=== PATIENT | female | born 1945 | race Two or more races ===

== ENCOUNTER 2018-03-26 09:44 | Inpatient (IN) | payer OTHER ==
[2018-03-26] MEDS ORDERED: Sodium Chloride 0.9% 1,000 ML IV ONE (10:09)
[2018-03-26] MEDS ORDERED: Morphine Sulfate 2 mg/mL 1mL Syr IVP ONE (10:09)
[2018-03-26 10:28] LABS: % BASOPHILS 0.7 % (0.0-2.0); % EOSINOPHILS 5.1 % (0.0-5.0); % LYMPHOCYTES 31.5 % (20.0-50.0); % MONOCYTES 8.9 % (2.0-10.0); % NEUTROPHILS 53.8 % (40.0-80.0); EOSINOPHILE ABSOLUTE 0.2 Th/cmm (0.1-0.4); HEMATOCRIT 34.4 % (41.0-60); HEMOGLOBIN 11.7 gm/dL (12-16); LYMPHOCYTE ABSOLUTE 1.4 Th/cmm (1.5-3.0); MEAN CELL VOLUME 84.2 fl (81-100); MEAN CORPUSCULAR HEMOGLOBIN 28.6 pg (27.0-31.0); MEAN PLATELET VOLUME 6.1 fl; MONOCYTE ABSOLUTE 0.4 Th/cmm (0.3-1.0); NEUTROPHILE ABSOLUTE 2.4 Th/cmm (1.8-8.0); PLATELET COUNT 270 Th/cmm (150-400); RED BLOOD COUNT 4.08 Mil/cmm (3.80-5.20); WHITE BLOOD COUNT 4.4 Th/cmm (4.8-10.8)
[2018-03-26] MEDS ORDERED: Morphine Sulfate 2 mg/mL 1mL Syr ONE (10:34)
[2018-03-26 10:44] LABS: ALB/GLOB RATIO 1.5 (1.0-1.8); ALBUMIN 4.5 gm/dL (3.7-5.3); ALKALINE PHOSPHATASE 62 U/L (34-104); BILIRUBIN,TOTAL 0.5 mg/dL (0.3-1.0); BUN - UREA NITROGEN 25 mg/dL (7-25); CALCIUM SERUM 9.5 mg/dL (8.6-10.3); CARBON DIOXIDE 22.8 mEq/L (21.0-31.0); CHLORIDE 104 mEq/L (98-107); CHOLESTEROL 175 mg/dL (<200); CREATININE - SERUM 0.9 mg/dL (0.6-1.2); CREATININE KINASE 326 U/L (30-223); GLUCOSE 126 mg/dL (70-105); HDL -HIGH DENSITY LIPOPROTEIN 37 mg/dL (23-92); POTASSIUM SERUM 3.8 mEq/L (3.5-5.1); SGOT 68 U/L (13-39); SGPT/ALT 54 U/L (7-52); SODIUM SERUM 136 mEq/L (136-145); TOTAL PROTEIN,SERUM 7.5 gm/dL (6.0-8.3); TRIGLYCERIDES 168 mg/dL (<150)
[2018-03-26 10:45] LABS: AMYLASE SERUM 28 U/L (29-103); LIPASE 24 U/L (11-82)
[2018-03-26 10:46] LABS: INR 0.9 (0.5-1.4); PROTHROMBIN TIME (TEST) 9.4 SECONDS (9.5-11.5)
--- NOTE | 2018-03-26 10:49 | ED Physician Chart ---
ED Chief Complaint/HPI - Patient Information Date Seen:: 03/26/18 Time Seen:: 10:00 Chief Complaint:: Abdominal Pain History of Present Illness:: onset x 3 days of intermittent, generalized, crampy abdominal pain, N/C; pt denies trauma, H/As, S/T, neck pain, C/P, SOB, cough, A/V/D, fever, chills, bleeding, or urinary s/s Allergies:: Allergies Allergy/AdvReac Type Severity Reaction Status Date / Time No Known Allergies Allergy Verified 03/26/18 10:03 Vitals:: Vital Signs - 8 hr 03/26/18 10:06 Temp 98.2 F HR 72 RR 19 BP 134/64 O2 Sat % 97 Historian:: Patient, Family Member Review:: Nurse's Note Reviewed ED Review of Systems - Review of Systems General/Constitutional: No fever, No chills, No weight loss, No weakness, No diaphoresis, No edema, No loss of appetite Skin: No skin lesions, No rash, No bruising Head: No headache, No light-headedness Eyes: No loss of vision, No pain, No diplopia ENT: No earache, No nasal drainage, No sore throat, No tinnitus Neck: No neck pain, No swelling, No thyromegaly, No stiffness, No mass noted Cardio Vascular: No chest pain, No palpitations, No PND, No orthopnea, No edema Pulmonary: No SOB, No cough, No sputum, No wheezing GI: Nausea, Vomiting, Diarrhea, Pain, No melena, No hematochezia, No constipation, No hematemesis G/U: No dysuria, No frequency, No hematuria Helpdesk Specialist: No vaginal discharge, No abnormal vaginal bleed, No contraction Musculoskeletal: No bone or joint pain, No back pain, No muscle pain Endocrine: No polyuria, No polydipsia Psychiatric: No prior psych history, No depression, No anxiety, No suicidal ideation, No homicidal ideation, No auditory hallucination, No visual hallucination Hematopoietic: No bruising, No lymphadenopathy Allergic/Immuno: No urticaria, No angioedema Neurological: No syncope, No focal symptoms, No weakness, No paresthesia, No headache, No seizure, No dizziness, No confusion, No vertigo ED Past Medical History - Past Medical History Obtainable: Yes Past Medical History: HTN, Dyslipidemia, Thyroid disorder Family History: HTN Social History: Non Smoker, No Alcohol, No Drug Use, Surgical History: None Psychiatricy History: None Medication: Reviewed Family Medical History - Family Member Mother History Unknown: Yes ED Physical Exam - Physical Examination General/Constitutional: Awake, Well-developed, well-nourished, Alert, No distress, GCS 15, Non-toxic appearing, Ambulatory Head: Atraumatic Eyes: Lids, conjuctiva normal, PERRL, EOMI Skin: Nl inspection, No rash, No skin lesions, No ecchymosis, Well hydrated, No lymphadenopathy ENMT: External ears, nose nl, TM canals nl, Nasal exam nl, Lips, teeth, gums nl , Oropharynx nl, Tonsils nl Neck: Nontender, Full ROM w/o pain, No JVD, No nuchal rigidity, No bruit, No mass, No stridor Respiratory: Nl effort/Exclusion, Clear to Auscultation, No Wheeze/Rhonchi/Rales Cardio Vascular: RRR, No murmur, gallop, rubs, NL S1 S2, Carotid/Femoral/Distal pulses equal bilaterally GI: No tenderness/rebounding/guarding, No organomegaly, No hernia, Normal BS's, Nondistended, No mass/bruits, No McBurney tenderness, Rectum exam nl : No CVA tenderness Extremities: No tenderness or effusion, Full ROM, normal strength in all extremities, No edema, Normal digits & nails Neuro/Psych: Alert/oriented, DTR's symmetric, Normal sensory exam, Normal motor strength, Judgement/insight normal, Mood normal, Normal gait, No focal deficits Misc: Normal back, No paraspinal tenderness ED Labs/Radiology/EKG Results - Lab Results Results: Laboratory Tests 03/26/18 03/26/18 10:20 10:20 WBC 4.4 L RBC 4.08 Hgb 11.7 L Hct 34.4 L MCV 84.2 MCH 28.6 MCHC Differential 34.0 RDW 14.0 Plt Count 270 MPV 6.1 Neutrophils % 53.8 Lymphocytes % 31.5 Monocytes % 8.9 Eosinophils % 5.1 H Basophils % 0.7 B-Natriuretic Peptide 33.5 Comments:: + Anemia; + Leukopenia; BUN: 25 - Radiology Results Comments:: NAD - EKG Interpretations EKG Time:: 10:15 Rate & Rhythm: 77; NSR; SA Comments:: non-specific st-t changes ED Septic Shock - . Is Septic Shock (SBP<90, OR Lactate>4 mmol\L) present?: No - <6hrs of presentation: Vital Signs: Vital Signs - 8 hr 03/26/18 10:06 Temp 98.2 F HR 72 RR 19 BP 134/64 O2 Sat % 97 ED Reassessment (Disposition) - Reassessment Reassessment Condition:: Improved - Diagnosis Diagnosis:: Abdominal Pain; N/V/D/C; AGE; Constipation; Gastritis; Leukopenia; Anemia; Dehydration; Left Adnexal Cyst - Aftercare/Follow up Instructions Aftercare/Follow-Up Instructions:: Counseled pt regarding lab results/diagnosis & need follow up, Counseled pt & family regarding lab results/diagnosis & need follow up - Patient Disposition Discharge/Transfer:: Acute Care w/in this hosp Accepting Physician:: Dr. Valdez Time Called:: 1200 Time Responded:: 12:00 Admitted to:: Telemetry Spoke to:: Dr. Valdez Admitting Medical Physician:: Dr. Valdez Condition at Disposition:: Stable, Improved
--- NOTE | 2018-03-26 11:00 | Diagnostic Imaging Report ---
CHEST X-RAY: AP view INDICATION: pain COMPARISON: None FINDINGS: Mild chronic lung changes are noted. There is no focal consolidation or pleural effusions The heart is normal in size. Atherosclerosis is noted. Degenerative changes of the spine are noted. Degenerative changes of bilateral shoulders are noted. There may be large osteophytes along the bilateral humeral head regions. IMPRESSION: No focal consolidation identified. Atherosclerotic vascular disease. Degenerative changes with probable large osteophytes along the bilateral humeral head regions. If indicated, dedicated x-rays of the shoulders may be obtained.
--- NOTE | 2018-03-26 11:03 | Diagnostic Imaging Report ---
CT abdomen and pelvis without intravenous contrast Indication: Abdominal pain Comparison: None, Technique: Axial images were obtained from the lung bases to the bilateral proximal femurs without IV contrast. Coronal reconstructions were made. total DLP: 761, CTDI15.2 FINDINGS: Hypoventilatory and atelectatic changes of the lung bases are noted. Assessment of the solid organs is limited due to lack of IV contrast. No evidence of focal hepatic, or splenic lesions. Splenic artery calcifications are noted. No focal pancreatic or adrenal lesions. No evidence of hydronephrosis or focal renal lesions. Left adnexal lesion is seen measuring 2.5 cm. Radiodensity possibly ingested material is seen along the cecal region measuring 1 cm. No evidence of appendicitis. No evidence of free abdominal fluid or free abdominal air. Moderate atherosclerosis is noted. Advanced Degenerative changes of the spine are noted. There is 2 mm anterolisthesis of L4 on L5 likely due to facet arthropathy. IMPRESSION: No evidence of appendicitis. There is 1 cm high density, possibly ingested material or calcification seen along the cecal region, significance uncertain. No evidence of bowel obstruction. 2.5 cm left adnexal cyst. Short-term follow-up ultrasound is recommended for further assessment Diffuse atherosclerotic vascular disease. Advanced degenerative changes of the spine. There is 2 mm anterolisthesis of L4 on L5 likely due to facet arthropathy.
[2018-03-26 13:40] VITALS: BP 116/60
[2018-03-26] MEDS: D5-0.45NS 1,000 ML IV SCH (15:08)
[2018-03-26] MEDS ORDERED: VTE Chemical Prophylaxis Screen/Admission MC PRN (16:45)
[2018-03-26 17:00] LABS: URINE MICROSCOPIC INDICATED? YES; URINE SOURCE CLEAN C
[2018-03-26 17:03] LABS: URINE BILIRUBIN NEGATIVE (NEGATIVE); URINE BLOOD NEGATIVE (NEGATIVE); URINE GLUCOSE (UA) NEGATIVE (NEGATIVE); URINE KETONE NEGATIVE (NEGATIVE); URINE LEUKOCYTE ESTERASE TRACE (NEGATIVE); URINE NITRATE NEGATIVE (NEGATIVE); URINE PROTEIN NEGATIVE (NEGATIVE); URINE UROBILINOGEN 0.2 E.U./dL (0.2 - 1.0)
[2018-03-26 17:13] LABS: URINE AMORPHOUS SEDIMENT FEW URATES (NONE SEEN); URINE BACTERIA NONE SEEN /hpf (NONE SEEN); URINE CLARITY CLEAR (CLEAR); URINE COLOR YELLOW; URINE EPITHELIAL CELLS MANY /lpf (FEW); URINE RBC 0-2 /hpf (0-5)
[2018-03-26] MEDS: Morphine Sulfate 4 mg/mL 1mL Syr IV PRN (18:58)
[2018-03-27] MEDS: D5-0.45NS 1,000 ML IV SCH ×2 (03:50→17:17)
[2018-03-27 05:11] LABS: % BASOPHILS 0.7 % (0.0-2.0); % EOSINOPHILS 4.7 % (0.0-5.0); % LYMPHOCYTES 22.3 % (20.0-50.0); % MONOCYTES 9.3 % (2.0-10.0); EOSINOPHILE ABSOLUTE 0.2 Th/cmm (0.1-0.4); HEMATOCRIT 31.9 % (41.0-60); HEMOGLOBIN 10.7 gm/dL (12-16); LYMPHOCYTE ABSOLUTE 1.1 Th/cmm (1.5-3.0); MEAN CELL VOLUME 84.7 fl (81-100); MEAN CORPUSCULAR HEMOGLOBIN 28.5 pg (27.0-31.0); MEAN CORPUSCULAR HGB CONC 33.7 pg (28.0-36.0); MONOCYTE ABSOLUTE 0.4 Th/cmm (0.3-1.0); NEUTROPHILE ABSOLUTE 3.1 Th/cmm (1.8-8.0); PLATELET COUNT 227 Th/cmm (150-400); RED BLOOD COUNT 3.76 Mil/cmm (3.80-5.20); RED CELL DISTRIBUTION WIDTH 14.1 % (11.5-20.0); WHITE BLOOD COUNT 4.8 Th/cmm (4.8-10.8)
[2018-03-27 05:35] LABS: ALB/GLOB RATIO 1.5 (1.0-1.8); ALBUMIN 3.9 gm/dL (3.7-5.3); ALKALINE PHOSPHATASE 62 U/L (34-104); ANION GAP 9.3 (7.0-16.0); BILIRUBIN,TOTAL 0.4 mg/dL (0.3-1.0); BUN - UREA NITROGEN 19 mg/dL (7-25); CALCIUM SERUM 8.7 mg/dL (8.6-10.3); CARBON DIOXIDE 25.4 mEq/L (21.0-31.0); CHLORIDE 108 mEq/L (98-107); CHOLESTEROL 148 mg/dL (<200); CREATININE - SERUM 0.9 mg/dL (0.6-1.2); GLUCOSE 110 mg/dL (70-105); HDL -HIGH DENSITY LIPOPROTEIN 30 mg/dL (23-92); LIPASE 26 U/L (11-82); MAGNESIUM 2.2 mg/dL (1.9-2.7); POTASSIUM SERUM 3.7 mEq/L (3.5-5.1); SGOT 53 U/L (13-39); SGPT/ALT 44 U/L (7-52); SODIUM SERUM 139 mEq/L (136-145); TOTAL PROTEIN,SERUM 6.5 gm/dL (6.0-8.3); TRIGLYCERIDES 187 mg/dL (<150)
--- NOTE | 2018-03-27 09:28 | Diagnostic Imaging Report ---
Abdominal ultrasound HISTORY: Pain The liver is enlarged. There is an increase in hepatic parenchymal echogenicity. The finding may be associated with fatty infiltration and should be correlated with liver function tests. No focal lesions. No intraluminal abnormality seen within the gallbladder. No biliary dilatation. Pancreas not well seen due to bowel gas. The kidneys appear normal bilaterally. No other retroperitoneal or intra-abdominal abnormalities. IMPRESSION: 1. Somewhat limited exam due to patient's size, body habitus, bowel gas 2. No definite acute abnormalities 3. Suggestion of hepatomegaly along with parenchymal changes that may reflect fatty infiltration. The findings should be correlated with liver function tests
--- NOTE | 2018-03-27 09:29 | Diagnostic Imaging Report ---
KUB abdominal film (portable) HISTORY: Pain There is a nonspecific gas pattern of nondilated bowel. No free intraperitoneal air. Degenerative changes noted throughout the spine. IMPRESSION: 1. Nonspecific bowel gas pattern with no acute radiographic abnormalities
[2018-03-27] MEDS ORDERED: Fleet Enema 135 mL RC ONE (11:22)
[2018-03-27] MEDS: Ciprofloxacin 200mg Premix PB 200 MG/100 ML BAG IV SCH ×2 (12:00→21:00)
--- NOTE | 2018-03-27 12:43 | History & Physical ---
ADMIT DATE: CHIEF COMPLAINT: Abdominal pain x 3 days. HISTORY OF PRESENT ILLNESS: The patient is a 72-year-old lady with history of essential hypertension, hyperlipidemia, hypothyroidism and constipation, who presented to the ED with a 3-day history of worsening abdominal pain, mostly left-sided, at times crampy associated with bloating and burping. She tells me that at times she gets constipated, but this does not occur too often. She regularly goes to the bathroom at least once, but sometimes up to 3 times a day. She does report no bowel movements over the last 3 days, but denies any unusual p.o. intake. She was seen at the ED where pertinent findings included a UA pointing to a UTI and CT of the abdomen and pelvis showing no small-bowel obstruction and no other intra-abdominal pathology. There was a 1 cm high density possibly ingested material or calcification seen along the cecal region with unknown or uncertain significance. There was also an incidental 2.5 left adnexal cyst noted. The patient has been admitted to the medical/surgical floor for further management and care. On further questioning, the patient states that these symptoms are similar to previous symptoms that are secondary to constipation. She apparently saw her primary care doctor a few days ago and who put her on a bowel regimen, but this has apparently not improved her symptoms. PAST MEDICAL HISTORY: As noted above and acid reflux disease. PAST SURGERIES: Denies. FAMILY HISTORY: Noncontributory. SOCIAL HISTORY: No tobacco, ETOH or illicit drug usage. ALLERGIES: NKDA. OUTPATIENT MEDICATIONS: Vitamin B12 1000 mg q. daily, docusate sodium 200 at bedtime, Lasix 20 q. daily, levothyroxine 50 mcg q. daily, lisinopril 20 q. daily and lovastatin 40 mg q. daily. REVIEW OF SYSTEMS: CONSTITUTIONAL: No fever or chills, no recent weight loss. CARDIAC: No chest pain, palpitations. PULMONARY: Occasional cough, chest tightness and phlegm production on/off x 2 weeks. GASTROINTESTINAL: Please refer to the HPI. No N/V, hematemesis, brbpr/melena. GENITOURINARY: No bladder habit changes. Denies any UTI. NEUROLOGIC: No changes in vision, no headaches. PHYSICAL EXAMINATION: VITAL SIGNS: Temperature 96.2, pulse 57-62, blood pressure 122/48, respirations 18, satting 98% on room air. GENERAL: Well-developed, mildly obese female, not in acute distress. HEAD AND NECK: Normocephalic, atraumatic. Pupils are reactive to light. Extraocular movements are intact. Oropharynx is moist and clear. CARDIAC: Regular rate and rhythm without any murmurs. LUNGS: Clear to auscultation bilaterally. ABDOMEN: Soft, supple, somewhat distended. Currently, there are hypoactive bowel sounds, but there is no rebound or peritoneal signs. LOWER EXTREMITY: There is no edema. LABORATORY DATA: White count 4.4, H and H 11/34 with a platelet count of 270. Chem-7 was essentially within normal limits. Glucose 126. AST 68, ALT 54. Troponins were negative. BNP negative. UA, trace leukocyte esterase with 2-5 WBCs. DIAGNOSTICS: Please refer to the HPI. IMPRESSION: 1. Abdominal pain, likely secondary to constipation given her history and her current findings. Other Ddx-diverticulosis vs colitis. 2. Urinary tract infection. 3. Hypertension. 4. History of hyperlipidemia. 5. History of hypothyroidism. 6. Mild transaminitis-?fatty liver dz. PLAN: The patient has been admitted to the medical floor for further management and care. The patient was placed on IV fluids, empiric IV antibiotics, pain management and Protonix. She was initially n.p.o., but her diet will be advanced as tolerated. I will ask for laxatives including Dulcolax, docusate sodium and a Fleet enema will be given per rectum. The patient is agreeable to go home if she is able to have a bowel movement and if her symptoms improve. If no improvement is achieved with above, a GI consult will be asked for. JOB# [id number] CECILIA
[2018-03-28] MEDS: Morphine Sulfate 4 mg/mL 1mL Syr IV PRN (02:27)
[2018-03-28] MEDS: Ciprofloxacin 200mg Premix PB 200 MG/100 ML BAG IV SCH ×2 (08:29→21:31)
[2018-03-28] MEDS ORDERED: Pneumococcal Vaccine 0.5 mL Vial IM ONE (09:00)
[2018-03-28] MEDS ORDERED: MINERAL OIL ENEMA 135 ML BOTTLE RC ONE (09:56)
[2018-03-28] MEDS ORDERED: LOVASTATIN 40 MG PO SCH (10:00)
[2018-03-28] MEDS ORDERED: Metoclopramide 5 mg/mL 2mL Vial IVP PRN (10:32)
[2018-03-28] MEDS: POLYETHYLENE GLYCOL 3350 17 GM PACK PO SCH (10:46)
[2018-03-28] MEDS: D5-0.45NS 1,000 ML IV SCH (15:06)
[2018-03-29 06:25] LABS: % BASOPHILS 1.2 % (0.0-2.0); % EOSINOPHILS 4.8 % (0.0-5.0); % LYMPHOCYTES 29.6 % (20.0-50.0); % NEUTROPHILS 53.4 % (40.0-80.0); EOSINOPHILE ABSOLUTE 0.2 Th/cmm (0.1-0.4); HEMATOCRIT 30.9 % (41.0-60); HEMOGLOBIN 10.4 gm/dL (12-16); LYMPHOCYTE ABSOLUTE 1.1 Th/cmm (1.5-3.0); MEAN CELL VOLUME 84.7 fl (81-100); MEAN CORPUSCULAR HEMOGLOBIN 28.4 pg (27.0-31.0); MEAN CORPUSCULAR HGB CONC 33.6 pg (28.0-36.0); MEAN PLATELET VOLUME 6.1 fl; MONOCYTE ABSOLUTE 0.4 Th/cmm (0.3-1.0); PLATELET COUNT 208 Th/cmm (150-400); RED BLOOD COUNT 3.65 Mil/cmm (3.80-5.20); RED CELL DISTRIBUTION WIDTH 14.1 % (11.5-20.0)
[2018-03-29 06:34] LABS: WHITE BLOOD COUNT 3.7 Th/cmm (4.8-10.8)
[2018-03-29 06:39] LABS: ALB/GLOB RATIO 1.9 (1.0-1.8); ALBUMIN 3.7 gm/dL (3.7-5.3); BILIRUBIN,TOTAL 0.3 mg/dL (0.3-1.0); TOTAL PROTEIN,SERUM 5.7 gm/dL (6.0-8.3)
[2018-03-29 06:40] LABS: ANION GAP 8.9 (7.0-16.0); BUN - UREA NITROGEN 8 mg/dL (7-25); CALCIUM SERUM 8.6 mg/dL (8.6-10.3); CARBON DIOXIDE 23.7 mEq/L (21.0-31.0); CHLORIDE 110 mEq/L (98-107); CREATININE - SERUM 0.8 mg/dL (0.6-1.2); GLUCOSE 112 mg/dL (70-105); MAGNESIUM 2.1 mg/dL (1.9-2.7); POTASSIUM SERUM 3.6 mEq/L (3.5-5.1); SODIUM SERUM 139 mEq/L (136-145)
[2018-03-29] MEDS: D5-0.45NS 1,000 ML IV SCH (06:45)
[2018-03-29 06:51] LABS: BILIRUBIN,DIRECT 0.08 mg/dL (0.0-0.2)
[2018-03-29] MEDS ORDERED: Levothyroxine 0.05 Mg Tab PO SCH (07:30)
[2018-03-29] MEDS: Ciprofloxacin 200mg Premix PB 200 MG/100 ML BAG IV SCH (09:00)
[2018-03-29] MEDS: POLYETHYLENE GLYCOL 3350 17 GM PACK PO SCH (09:11)
--- NOTE | 2018-03-29 09:20 | Consultation ---
DATE OF CONSULTATION: 03/28/2018 INPATIENT GASTROINTESTINAL CONSULTATION REFERRING PHYSICIAN: Dr. Valdez. REASON FOR CONSULTATION: Right-sided abdominal pain and constipation. HISTORY OF PRESENT ILLNESS: A 72-year-old female complaining of right-sided abdominal pain for the past 10 days. The patient has not had a bowel movement in 7 days. She has nausea, but no vomiting. Denies hematemesis or coffee ground emesis. States that she has had a workup recently where in October she had an endoscopy and colonoscopy. PAST MEDICAL HISTORY: GERD, hypertension, hyperlipidemia, hypothyroidism, constipation. PAST SURGICAL HISTORY: None to add recently. FAMILY HISTORY: Noncontributory. SOCIAL HISTORY: Denies tobacco, alcohol or IV drug usage. ALLERGIES: None. CURRENT MEDICATIONS: Cipro, vitamin B12, Colace, Lasix, Toradol, Synthroid, Zestril, Reglan, morphine, Zofran, Protonix, MiraLax, Zocor. REVIEW OF SYSTEMS: Ten-point review of systems was performed and pertinent positives with the constipation and abdominal pain. All other systems were otherwise negative. PHYSICAL EXAMINATION: VITAL SIGNS: Temperature 97.4, breathing 18, pulse of 70, blood pressure 133/59, satting 97%. GENERAL: In no apparent distress. EYES: Anicteric. Normal conjunctivae. HEENT: Normocephalic, atraumatic. Moist mucous membranes. NECK: Soft, supple. CHEST: Clear. No effort. CARDIOVASCULAR: Regular rate and rhythm. ABDOMEN: Soft, nontender, nondistended, normal bowel sounds. SKIN: Warm and dry. EXTREMITIES: Reveal no cyanosis. PSYCHOLOGIC: Alert and oriented x 3. LABORATORY DATA: Labs show white count 4.8, hemoglobin 10.7, platelets of 227. INR 0.9. BUN 19, creatinine 0.9. Total bilirubin 0.4, AST of 53, ALT 44, alk phos 62, lipase 26. UA showed leukocyte esterase. IMPRESSION: A 72-year-old female with abdominal pain and constipation. She has urinary tract infection, being treated with antibiotics per primary team; has not had any bowel movements for the last 7 days, we could provide her with some additional laxatives. Presently, the primary team is using Colace and MiraLax, which is not unreasonable. We can also add Amitiza given the fact that she is on opioids and this could also help with chronic idiopathic constipation. Endoscopy and colonoscopy will be considered; however, they were done recently; therefore, they do not need to be repeated at this time, getting records would be helpful. Her LFTs are elevated, which would be consistent with fatty liver disease, which was seen on her ultrasound. Her CT abdomen and pelvis was reviewed and was unremarkable for any bowel obstruction. Her KUB was also unremarkable. PLAN: 1. Provide the patient with Amitiza. 2. Treat urinary tract infection per primary team. 3. Gradual weight loss through diet and exercise for fatty liver disease. 4. Follow LFTs periodically as an outpatient. 5. Get records of EGD and colonoscopy. Thank you for allowing me to participate. Please call me if any questions. [facility]# [id number]
--- NOTE | 2018-03-29 20:37 | Discharge Summary ---
DATE OF DISCHARGE: 03/29/2018 ADMITTING DIAGNOSES: 1. Abdominal pain with differential diagnosis including secondary to constipation versus diverticulosis versus colitis. 2. Urinary tract infection. 3. Mild leukopenia. 4. Mild transaminitis. 5. Anemia. SECONDARY DIAGNOSIS: Essential hypertension, hyperlipidemia, hypothyroidism, acid reflux disease and asthma. DISCHARGE DIAGNOSES: 1. Abdominal pain secondary to constipation -- clinically improved. 2. History of constipation with acute constipation. 3. Urinary tract infection, status post treatment. 4. Mild leukopenia-stable. 5. Transaminitis, likely secondary to fatty liver disease. CONSULTANTS: Dr. Arnulfo FERNANDES. MAJOR PROCEDURES: CT of the abdomen and pelvis showing no evidence of appendicitis. There is a 1 cm high density probably ingested material calcification, again possibly ingested material or calcification seen along the cecal region of insignificant uncertainty. There is no evidence of bowel obstruction. There is a 2.5 left adnexal cyst. A KUB done on 03/27/2018 shows nonspecific bowel gas pattern with no acute radiographic abnormalities. BRIEF HOSPITAL COURSE: The patient presented to the ED with a 3-day history of worsening abdominal pain, colicky at times and associated with constipation. At the ED patient underwent the above-mentioned CT of the pelvis and abdomen and also had basic lab work that showed a white blood cell 4.4, AST of 68, ALT of 54 and UA was trace leukocyte esterase. The patient was admitted to the medical floor and was placed on IV fluids, multiple laxatives and IV Cipro. By hospital day #1, she felt mild improvement, but was still constipated and bloated.. Therefore, a rectal enema was ordered with mild improvement of her constipation. She reported a very small bowel movement the next day, and was still c/o abdominal pain and bloating. Given above, a mineral oil enema was ordered on top of the other laxatives and stool softeners that were already ordered. Patient eventually had a large BM. A GI consult was also asked for further management and care. The patient was also placed on Protonix given mild symptomatology of acid reflux disease and Amitiza was added as well to her regimen. Today, 03/29/2018, patient feels much better, almost back to her baseline. Of note, since admission, she also reported mild "asthma" symptoms- shortness of breath and dry cough. She reported being treated for bronchitis a few weeks ago. She was placed on nebulizer treatments as well as cough suppressants with improvement of her symptoms. DISCHARGE MEDICATIONS: Dulcolax 10 mg 1 tab at bedtime p.r.n. for constipation, docusate sodium 250 b.i.d., MiraLax 17 grams 1 pack every day, Levaquin 500 mg every day x7 10 days, Amitiza 24 mcg b.i.d. with meals, vitamin B12 1000 mcg daily, Lasix 20 daily, Synthroid 50 mcg daily, lisinopril 20 daily, lovastatin 40 daily, prednisone taper and Flovent Diskus or Flovent HFA 110 mcg 2 puffs b.i.d. CONDITION ON DISCHARGE: Stable. DISPOSITION: Discharged home to self-care. I instructed the patient to follow up her primary care doctor within a week. [facility]# [id number] MTDD
== END 2018-03-29 12:00 | disposition home or self-care (01) | DRG 690 ==
LOC: ER 09:44 → MSI 12:44
PROVIDERS: ADMIT Internal Medicine; ATTEND Internal Medicine
DX: N39.0 Urinary tract infection, site not specified (principal); K59.09 Other constipation; I10 Essential (primary) hypertension; E78.5 Hyperlipidemia, unspecified; E03.9 Hypothyroidism, unspecified; K52.9 Noninfective gastroenteritis and colitis, unspecified; K29.70 Gastritis, unspecified, without bleeding; D64.9 Anemia, unspecified; K76.0 Fatty (change of) liver, not elsewhere classified; E86.0 Dehydration; K21.9 Gastro-esophageal reflux disease without esophagitis; Z82.49 Family history of ischemic heart disease and other diseases of the circulatory system
CPT/HCPCS: 36415-UA; 71045-TC; 74000-TC; 76700-TC; 80048-TC; 80053-TC; 80061-TC; 80076-TC; 81001-TC; 82150-TC; 82270-TC; 82378-90; 82550-TC; 82553; 83690-TC; 83735-TC; 83880-TC; 84443-TC; 84484-TC; 85025-TC; 85610-TC; 93005; 96374; 96375; C9113; J0744; J1885; J2270; J2405; J2765; J7030; Z7610

== ENCOUNTER 2018-05-11 12:34 | Inpatient (IN) | payer OTHER ==
[2018-05-11] MEDS ORDERED: cefTRIAXone 1 GM in Sodium Chloride 0.9% 50 ML IV ONE (12:52)
[2018-05-11 12:59] LABS: % BASOPHILS 0.8 % (0.0-2.0); % EOSINOPHILS 4.5 % (0.0-5.0); % LYMPHOCYTES 25.9 % (20.0-50.0); % MONOCYTES 7.5 % (2.0-10.0); % NEUTROPHILS 61.3 % (40.0-80.0); EOSINOPHILE ABSOLUTE 0.2 Th/cmm (0.1-0.4); LYMPHOCYTE ABSOLUTE 1.4 Th/cmm (1.5-3.0); MEAN CELL VOLUME 83.1 fl (81-100); MEAN CORPUSCULAR HEMOGLOBIN 27.7 pg (27.0-31.0); MEAN CORPUSCULAR HGB CONC 33.3 pg (28.0-36.0); MEAN PLATELET VOLUME 6.3 fl; MONOCYTE ABSOLUTE 0.4 Th/cmm (0.3-1.0); NEUTROPHILE ABSOLUTE 3.3 Th/cmm (1.8-8.0); PLATELET COUNT 266 Th/cmm (150-400); RED BLOOD COUNT 4.33 Mil/cmm (3.80-5.20); RED CELL DISTRIBUTION WIDTH 13.2 % (11.5-20.0); WHITE BLOOD COUNT 5.3 Th/cmm (4.8-10.8)
--- NOTE | 2018-05-11 13:04 | Diagnostic Imaging Report ---
Chest x-ray single view History: Chest pain The heart size is normal. No focal pulmonary parenchymal processes. No hilar or mediastinal abnormalities. Impression: No acute abnormalities
[2018-05-11 13:29] LABS: DDIMER QUANT 482 ng/mL (100-400)
[2018-05-11] MEDS ORDERED: IOHEXOL 350mgI/mL 150mL IV ONE (13:38)
[2018-05-11 13:41] LABS: ALB/GLOB RATIO 1.6 (1.0-1.8); ALBUMIN 4.4 gm/dL (3.7-5.3); ALKALINE PHOSPHATASE 77 U/L (34-104); ANION GAP 10.7 (7.0-16.0); BILIRUBIN,TOTAL 0.4 mg/dL (0.3-1.0); BUN - UREA NITROGEN 16 mg/dL (7-25); CALCIUM SERUM 9.5 mg/dL (8.6-10.3); CARBON DIOXIDE 24.4 mEq/L (21.0-31.0); CHLORIDE 106 mEq/L (98-107); CREATININE - SERUM 0.7 mg/dL (0.6-1.2); GLUCOSE 120 mg/dL (70-105); MAGNESIUM 2.2 mg/dL (1.9-2.7); PHOSPHOROUS 2.7 mg/dL (2.5-5.0); POTASSIUM SERUM 4.1 mEq/L (3.5-5.1); SGOT 46 U/L (13-39); SGPT/ALT 39 U/L (7-52); SODIUM SERUM 137 mEq/L (136-145); TOTAL PROTEIN,SERUM 7.2 gm/dL (6.0-8.3)
--- NOTE | 2018-05-11 13:50 | ED Physician Chart ---
ED Chief Complaint/HPI - Patient Information Date Seen:: 05/11/18 Time Seen:: 12:53 Chief Complaint:: chest pain History of Present Illness:: chest pain and white sputum production with blood specks. has been on antibiotics for 2 months. on presentation, had chest pain and was pale and diaphoretic. Allergies:: Allergies Allergy/AdvReac Type Severity Reaction Status Date / Time No Known Allergies Allergy Verified 03/26/18 10:03 Vitals:: Vital Signs - 8 hr 05/11/18 05/11/18 12:53 13:20 Temp 97.4 F HR 90 85 RR 20 BP 165/85 165/105 O2 Sat % 95 Historian:: Patient, Family Member Review:: Nurse's Note Reviewed ED Review of Systems - Review of Systems General/Constitutional: No fever, No chills, No weight loss, No weakness, No diaphoresis, No edema, No loss of appetite Skin: No skin lesions, No rash, No bruising Head: No headache, No light-headedness Eyes: No loss of vision, No pain, No diplopia ENT: No earache, No nasal drainage, No sore throat, No tinnitus Neck: No neck pain, No swelling, No thyromegaly, No stiffness, No mass noted Cardio Vascular: Chest pain Pulmonary: Cough GI: No nausea, No vomiting, No diarrhea, No pain, No melena, No hematochezia, No constipation, No hematemesis G/U: No dysuria, No frequency, No hematuria Musculoskeletal: No bone or joint pain, No back pain, No muscle pain Endocrine: No polyuria, No polydipsia Psychiatric: No prior psych history, No depression, No anxiety, No suicidal ideation Hematopoietic: No bruising, No lymphadenopathy Allergic/Immuno: No urticaria, No angioedema Neurological: No syncope, No focal symptoms, No weakness, No paresthesia, No headache, No seizure, No dizziness, No confusion, No vertigo ED Past Medical History - Past Medical History Obtainable: Yes Past Medical History: HTN Social History: Non Smoker Family Medical History - Family Member Mother History Unknown: Yes Ethnicity: ED Physical Exam - Physical Examination Other Gen/Cons comments:: overweight patient who is pale and diaphoretic, c/o chest pain. Head: Atraumatic Eyes: Lids, conjuctiva normal, PERRL, EOMI Skin: Nl inspection, No rash, No skin lesions, No ecchymosis, Well hydrated, No lymphadenopathy ENMT: External ears, nose nl, Nasal exam nl, Lips, teeth, gums nl Neck: Nontender, Full ROM w/o pain, No JVD, No nuchal rigidity, No bruit, No mass, No stridor Respiratory: Nl effort/Exclusion, Clear to Auscultation, No Wheeze/Rhonchi/Rales Cardio Vascular: RRR, No murmur, gallop, rubs, NL S1 S2 GI: No tenderness/rebounding/guarding, No organomegaly, No hernia, Normal BS's, Nondistended, No mass/bruits, No McBurney tenderness : No CVA tenderness Extremities: No tenderness or effusion, Full ROM, normal strength in all extremities, No edema, Normal digits & nails Neuro/Psych: Alert/oriented, DTR's symmetric, Normal sensory exam, Normal motor strength, Judgement/insight normal, Mood normal, Normal gait, No focal deficits Misc: Normal back, No paraspinal tenderness ED Labs/Radiology/EKG Results - Lab Results Results: Laboratory Tests 05/11/18 05/11/18 05/11/18 12:50 12:50 12:50 WBC 5.3 RBC 4.33 Hgb 12.0 Hct 36.0 L MCV 83.1 MCH 27.7 MCHC Differential 33.3 RDW 13.2 Plt Count 266 MPV 6.3 Neutrophils % 61.3 Lymphocytes % 25.9 Monocytes % 7.5 Eosinophils % 4.5 Basophils % 0.8 D-Dimer 482 H Sodium 137 Potassium 4.1 Chloride 106 Carbon Dioxide 24.4 Anion Gap 10.7 BUN 16 Creatinine 0.7 Est GFR ( Amer) TNP Est GFR (Non-Af Amer) TNP BUN/Creatinine Ratio 22.9 Glucose 120 H Calcium 9.5 Phosphorus 2.7 Magnesium 2.2 Total Bilirubin 0.4 AST 46 H ALT 39 Alkaline Phosphatase 77 Troponin I 0.01 Total Protein 7.2 Albumin 4.4 Globulin 2.8 Albumin/Globulin Ratio 1.6 ED Assessment - Assessment General Assessment: EKG from 12:38:22 p.m.: normal sinus rhythm with flipped t wave in AVR. Patient received Aspirin 325 mg po and one sublingual nitroglycerin with resultant decrease of her chest pain from an 8 to a 3. Assessment/Comments:: called Dr. Valdez to admit this patient who responded to nitroglycerin with a decrease in her chest pain from an 8 to a 3 with possible pneumonia and blood- tinged sputum. ED Septic Shock - . Is Septic Shock (SBP<90, OR Lactate>4 mmol\L) present?: No - <6hrs of presentation: Vital Signs: Vital Signs - 8 hr 05/11/18 05/11/18 12:53 13:20 Temp 97.4 F HR 90 85 RR 20 BP 165/85 165/105 O2 Sat % 95 ED Reassessment (Disposition) - Reassessment Reassessment Condition:: Improved - Diagnosis Diagnosis:: Chest pain, rule out Acute Coronary Syndrome Cough with right sided haziness/infiltrate Blood tinged sputum. - Patient Disposition Discharge/Transfer:: Acute Care w/in this hosp Admitted to:: Telemetry Condition at Disposition:: Improved
[2018-05-11 13:51] LABS: URINE SOURCE CLEAN C
[2018-05-11 13:54] LABS: URINE BILIRUBIN NEGATIVE (NEGATIVE); URINE BLOOD NEGATIVE (NEGATIVE); URINE GLUCOSE (UA) NEGATIVE (NEGATIVE); URINE KETONE NEGATIVE (NEGATIVE); URINE LEUKOCYTE ESTERASE TRACE (NEGATIVE); URINE MICROSCOPIC INDICATED? YES; URINE NITRATE NEGATIVE (NEGATIVE); URINE PROTEIN NEGATIVE (NEGATIVE); URINE UROBILINOGEN 0.2 E.U./dL (0.2 - 1.0)
[2018-05-11 14:00] LABS: URINE CLARITY CLEAR (CLEAR); URINE COLOR YELLOW
[2018-05-11 14:01] LABS: URINE BACTERIA NONE SEEN /hpf (NONE SEEN); URINE EPITHELIAL CELLS FEW /lpf (FEW); URINE RBC 0-2 /hpf (0-5); URINE WBC 0-2 /hpf (0-5)
[2018-05-11] MEDS ORDERED: Maalox 30 mL Cup PO ONE ×2 (14:20→18:15)
[2018-05-11] MEDS ORDERED: Donnatal Liq 5 ML UDC PO STA (14:22)
[2018-05-11] MEDS ORDERED: Maalox 30 mL Cup ONE ×2 (14:30→18:16)
[2018-05-11 15:04] LABS: INR 0.92 (0.5-1.4); PROTHROMBIN TIME (TEST) 9.6 SECONDS (9.5-11.5)
[2018-05-11] MEDS ORDERED: Azithromycin 500 MG in Sodium Chloride 0.9% 250 ML IV ONE (15:26)
[2018-05-11] MEDS ORDERED: Ipratropium Neb 0.5 mg/2.5 mL UD HHN ONE (19:27)
[2018-05-11] MEDS: Albuterol Nebulizer 2.5mg/3mL HHN SCH ×3 (19:44→23:27)
[2018-05-12] MEDS ORDERED: Pneumococcal Vaccine 0.5 mL Vial IM ONE (00:37)
[2018-05-12] MEDS: Albuterol Nebulizer 2.5mg/3mL HHN SCH ×7 (02:36→23:02)
[2018-05-12 05:54] LABS: % BASOPHILS 0.5 % (0.0-2.0); % EOSINOPHILS 5.8 % (0.0-5.0); % LYMPHOCYTES 38.2 % (20.0-50.0); % MONOCYTES 9.6 % (2.0-10.0); % NEUTROPHILS 45.9 % (40.0-80.0); EOSINOPHILE ABSOLUTE 0.2 Th/cmm (0.1-0.4); HEMATOCRIT 34.3 % (41.0-60); HEMOGLOBIN 11.3 gm/dL (12-16); LYMPHOCYTE ABSOLUTE 1.5 Th/cmm (1.5-3.0); MEAN CELL VOLUME 83.8 fl (81-100); MEAN CORPUSCULAR HEMOGLOBIN 27.6 pg (27.0-31.0); MEAN PLATELET VOLUME 6.4 fl; MONOCYTE ABSOLUTE 0.4 Th/cmm (0.3-1.0); NEUTROPHILE ABSOLUTE 1.8 Th/cmm (1.8-8.0); PLATELET COUNT 225 Th/cmm (150-400); RED BLOOD COUNT 4.09 Mil/cmm (3.80-5.20); RED CELL DISTRIBUTION WIDTH 12.9 % (11.5-20.0)
[2018-05-12 05:59] LABS: WHITE BLOOD COUNT 3.9 Th/cmm (4.8-10.8)
[2018-05-12 06:10] LABS: ANION GAP 11.3 (7.0-16.0); BUN - UREA NITROGEN 13 mg/dL (7-25); CALCIUM SERUM 9.1 mg/dL (8.6-10.3); CARBON DIOXIDE 24.5 mEq/L (21.0-31.0); CHLORIDE 107 mEq/L (98-107); CHOLESTEROL 142 mg/dL (<200); CREATININE - SERUM 0.7 mg/dL (0.6-1.2); GLUCOSE 113 mg/dL (70-105); HDL -HIGH DENSITY LIPOPROTEIN 38 mg/dL (23-92); MAGNESIUM 2.4 mg/dL (1.9-2.7); POTASSIUM SERUM 3.8 mEq/L (3.5-5.1); SODIUM SERUM 139 mEq/L (136-145); TRIGLYCERIDES 149 mg/dL (<150)
[2018-05-12] MEDS: Aspirin 81mg Chewable Tab PO SCH (08:41)
--- NOTE | 2018-05-12 08:45 | Diagnostic Imaging Report ---
CT angiogram of the chest with intravenous contrast (CTA) Total DLP equals 438 CTDI equals 11.7 Following administration of intravenous contrast, axial sections were obtained from a level above the clavicles down to level below the diaphragm. The heart size is normal. There is normal opacification of the main, right, and left pulmonary arteries. No intraluminal filling defects are seen. Specifically, no evidence of pulmonary embolism. No other abnormal mediastinal or hilar masses. No focal pulmonary parenchymal processes. No pleural fluid. Degenerative changes seen within the thoracic spine. IMPRESSION: 1. No acute abnormalities. No evidence of pulmonary embolism.
[2018-05-12] MEDS: cefTRIAXone 1 GM in Sodium Chloride 0.9% 50 ML IV SCH (12:06)
[2018-05-12] MEDS: Pantoprazole 40 mg EC Tab PO SCH (12:42)
[2018-05-12] MEDS: methylPREDNISolone SS 40 mg Vial IVP SCH ×2 (12:42→20:41)
--- NOTE | 2018-05-12 13:55 | History & Physical Pre-OP ---
DATE OF SERVICE: 05/12/2018 CHIEF COMPLAINT: Chest pain and persistent cough. HISTORY OF PRESENT ILLNESS: The patient is a 72-year-old lady with history of essential hypertension, hypothyroidism, hyperlipidemia, who was admitted to this facility back in March for abdominal pain, was diagnosed with constipation and UTI. The patient apparently has also been coughing for the last couple of months and has been treated twice with amoxicillin and Claritin with no improvement. She also has been complaining of recurrent chest pain, which got worse over the last couple of days and decided to come into the ED for further evaluation. On further questioning, the patient states that the cough was initially nonproductive, but as of late she has had a cough productive for white thick phlegm with occasional bloody strings. She denies any fever, chills, or any palpitations. Pertinent findings at the ED included elevated D-dimer at 482. Chest x-ray, which was negative and a CT angiogram that did not show any evidence of PE. The patient has been admitted to telemetry for management and care. PAST MEDICAL HISTORY: As noted above. PAST SURGICAL HISTORY: None. FAMILY HISTORY: Noncontributory to this admission. SOCIAL HISTORY: No tobacco, ETOH, or illicit drug usage. She lives at home with family. ALLERGIES: NKDA. OUTPATIENT MEDICATIONS: Amoxicillin 500 mg 3 times a day, Lasix 20 every day, lisinopril 20 every day, vitamin B12 1000 mcg every day, Synthroid 50 mcg every day, Claritin 10 every day, lovastatin 40 every 24 hours. REVIEW OF SYSTEMS: CONSTITUTIONAL: No fever or chills, no recent weight loss. CARDIOVASCULAR: Chest pain as noted above, but no palpitations. She denies any orthopnea or dyspnea on exertion. PULMONARY: Please refer to the HPI. GASTROINTESTINAL: Occasional acid reflux, but currently denies any abdominal pain, diarrhea, constipation. GENITOURINARY: No bladder habit changes. NEUROLOGIC: No changes in vision, no headaches, no syncope. PHYSICAL EXAMINATION: VITAL SIGNS: Temperature 97.9, pulse 67, respirations 18, BP 120/46, satting 96% on room air. GENERAL: Well-developed, obese female, currently in no distress. She is awake, alert and oriented x 3. HEAD AND NECK: Normocephalic, atraumatic. Pupils reactive to light. Extraocular movements are intact. Oropharynx is moist and clear. CARDIAC: Regular rate and rhythm without any murmurs. CHEST WALL EXAM: On the left sternal border, there is some tenderness to palpation consistent with her chest pain. LUNGS: There is some very mild crackles noted at the bases, but no audible rhonchi or wheezing noted. ABDOMEN: Soft, supple, nontender, nondistended, normoactive bowel sounds. EXTREMITIES: On lower extremity, there is no edema. There is no palpable cords. NEUROLOGIC: Grossly intact, nonfocal. Cranial nerves 2-12 are within normal limits. She is able to move all 4 extremities with equal force and strength. LABORATORY DATA: CBC was essentially within normal limits. D-dimer 482. INR 0.92. Chemistry was within normal limits with glucose level of 120, AST 46, ALT 39. Troponins are negative x 2 sets. BNP is 118. TSH is 1.08. DIAGNOSTICS: Please refer to the HPI. ASSESSMENT: 1. Chest pain secondary to chest wall pain (secondary to persistent cough?). R/o ACS. 2. Likely tracheobronchitis versus early pneumonia. Other differential would include chronic cough secondary to ROBERTO inhibitor usage. 3. Elevated D-dimer with no current evidence of an acute PE. 4. Essential hypertension. 5. Hypercholesterolemia. 6. History of hypothyroidism. PLAN: The patient has been admitted to the tele [facility] for further management and care. The patient has been placed on IV antibiotics and pulmonary supportive care. The patient will also be started on low dose steroids and her ROBERTO inhibitor has been discontinued. As far as the chest pain, troponins will be checked every 8 hours, and a 2D echo will be checked. The patient also will further eval to rule out DVT given elevated D-dimer: venous lower extremity dupplex ultra sound. A f/u CXR will be ordered, and she will be kept on her other medications as scheduled. Losartan will be started for BP control. JOB# [id number] CECILIA
[2018-05-12] MEDS ORDERED: Azithromycin 500 MG in Sodium Chloride 0.9% 250 ML IV SCH (15:00)
[2018-05-12] MEDS ORDERED: Maalox 30 mL Cup PO PRN (20:05)
[2018-05-12] MEDS ORDERED: Atorvastatin Calcium 10 MG TAB PO SCH (21:00)
[2018-05-13] MEDS: Albuterol Nebulizer 2.5mg/3mL HHN SCH ×3 (03:27→11:00)
[2018-05-13 06:18] LABS: % BASOPHILS 0.8 % (0.0-2.0); % EOSINOPHILS 0.1 % (0.0-5.0); % LYMPHOCYTES 11.5 % (20.0-50.0); % MONOCYTES 1.6 % (2.0-10.0); HEMATOCRIT 33.7 % (41.0-60); HEMOGLOBIN 11.2 gm/dL (12-16); LYMPHOCYTE ABSOLUTE 0.6 Th/cmm (1.5-3.0); MEAN CELL VOLUME 83.5 fl (81-100); MEAN CORPUSCULAR HEMOGLOBIN 27.7 pg (27.0-31.0); MEAN CORPUSCULAR HGB CONC 33.2 pg (28.0-36.0); MEAN PLATELET VOLUME 6.4 fl; MONOCYTE ABSOLUTE 0.1 Th/cmm (0.3-1.0); NEUTROPHILE ABSOLUTE 4.8 Th/cmm (1.8-8.0); PLATELET COUNT 238 Th/cmm (150-400); RED BLOOD COUNT 4.04 Mil/cmm (3.80-5.20); RED CELL DISTRIBUTION WIDTH 13.1 % (11.5-20.0); WHITE BLOOD COUNT 5.5 Th/cmm (4.8-10.8)
[2018-05-13 06:52] LABS: BUN - UREA NITROGEN 16 mg/dL (7-25); CALCIUM SERUM 9.2 mg/dL (8.6-10.3); CARBON DIOXIDE 23.3 mEq/L (21.0-31.0); CHLORIDE 106 mEq/L (98-107); CREATININE - SERUM 0.8 mg/dL (0.6-1.2); MAGNESIUM 2.3 mg/dL (1.9-2.7); POTASSIUM SERUM 4.3 mEq/L (3.5-5.1); SODIUM SERUM 138 mEq/L (136-145)
[2018-05-13] MEDS ORDERED: Levothyroxine 0.05 Mg Tab PO SCH (07:30)
[2018-05-13 07:55] LABS: GLUCOSE 183 mg/dL (70-105)
[2018-05-13] MEDS: Pantoprazole 40 mg EC Tab PO SCH (08:44)
[2018-05-13] MEDS: Aspirin 81mg Chewable Tab PO SCH (08:44)
[2018-05-13] MEDS: methylPREDNISolone SS 40 mg Vial IVP SCH (08:44)
--- NOTE | 2018-05-13 09:49 | Diagnostic Imaging Report ---
Bilateral lower extremity DVT study HISTORY: Elevated d-dimer COMPARISON: None Technique: Longitudinal and transverse sonographic images of the bilateral lower extremity veins were obtained with doppler analysis. FINDINGS: There is normal compressibility, augmentation and phasicity of the bilateral common femoral, superficial femoral, popliteal, and posterior tibial veins. No thrombus is visualized. IMPRESSION: No evidence of thrombus within the bilateral lower extremity veins.
--- NOTE | 2018-05-13 09:50 | Diagnostic Imaging Report ---
CHEST X-RAY: 2 views INDICATION: Chest pain, cough COMPARISON: 05/11/2018 FINDINGS: Mild increased interstitial lung markings are noted. No focal consolidation or effusions. Cardiomegaly is noted. Degenerative changes of the spine are noted. IMPRESSION: Mild increased initial lung markings which may be chronic. A marginal degree of congestion is less likely. No focal consolidation identified. Cardiomegaly.
[2018-05-13] MEDS: cefTRIAXone 1 GM in Sodium Chloride 0.9% 50 ML IV SCH (12:12)
[2018-05-13 20:37] LABS: A1C % 6.8 % (4.0-6.0)
--- NOTE | 2018-05-13 22:30 | Discharge Summary ---
DATE OF DISCHARGE: 05/13/2018 ADMITTING DIAGNOSES: 1. Chest pain. Differential including a chest wall pain versus chest pain 2ry to pulmonary embolus (elevated d-dimer), versus acute coronary syndrome. 2. Tracheobronchitis versus early pneumonia. 3. Chronic cough, likely secondary to chronic ROBERTO inhibitor usage. 4. Elevated D-dimer with no evidence of acute pulmonary embolism. SECONDARY DIAGNOSES: Include history of essential hypertension, history of hypercholesterolemia, history of hypothyroidism, history of gastroesophageal reflux disease, history of constipation. DISCHARGE DIAGNOSES: 1. Chest pain secondary to chest wall pain. The patient was ruled out for acute coronary syndrome and pulmonary embolism. 2. Tracheal tracheobronchitis-clinically improved. 3. Chronic cough secondary to ROBERTO inhibitor usage -- clinically improved. 4. Elevated D-dimer. CONSULTANTS: No consultants were used during this admission. MAJOR PROCEDURES: The patient underwent a CTA of the chest showing no acute abnormalities with no evidence of PE. On 05/12/2018, she underwent a bilateral lower extremity venous Doppler showing no evidence of DVT. On 05/12/2018, she underwent a 2D echo showing left ventricle ejection fraction of 66% with no major abnormalities. BRIEF HOSPITAL COURSE: This is a 72-year-old lady with history of essential hypertension, hypothyroidism, and hyperlipidemia, who presented with a 2-month history of chronic cough, which was treated as an outpatient twice with amoxicillin and Claritin. She reported worsening cough and neck fullness as well as recurrent chest pain over the last few weeks. The cough was initially nonproductive, but lately has had a thick white phlegm with occasional bloody strings. She denied any fever, chills or palpitations. The patient was evaluated at the ED with pertinent findings including elevated D-dimer of 482. A chest x-ray, which was negative and a CT angiogram that did not show any evidence of PE. She was admitted to tele floor for further management and care. The patient was placed on IV antibiotics, pulmonary supportive care and underwent a duplex venous ultrasound to rule out DVT. She had a repeat chest x-ray on 05/13/2018 showing mild increase in initial lung markings, which may be chronic. Marginal degree of congestion is less likely. By 05/13/2018, patient reported much improvement of her symptoms and her vital signs remained stable. She was also initially placed on steroids via IV and was kept on her other medications as scheduled except for the ROBERTO inhibitor. Instead of ROBERTO inhibitor, she was started on losartan 25 every day. MEDICATIONS ON DISCHARGE: Prednisone taper, Levaquin 500 mg every day x 10 days, losartan 25 every day, Maalox 30 mL q.6 hours p.r.n. for gassy pain, vitamin B12 1000 mcg every day, Synthroid 50 mcg every day, lovastatin 40 every 24 hours. CONDITION ON DISCHARGE: Stable. DISPOSITION: This patient was discharged home. FOLLOWUP: The patient is to follow up with her primary care doctor (____) in the next 3-5 days. JOB# [id number] CECILIA
--- NOTE | 2018-05-14 13:49 | Cardiology ---
05/12/2018 ECHOCARDIOGRAM REPORT PATIENT OF: Dr. Valdez. M-MODE ECHOCARDIOGRAM: Mitral valve: Anterior leaflet of mitral valve shows normal excursion, EF velocity. Posterior leaflet of the mitral valve shows normal excursion. Left ventricular posterior wall showed normal thickness excursion. Interventricular septum showed normal thickness, excursion. Ejection fraction 66%. Left atrium normal. Aortic root shows normal dimension, normal excursion of aortic leaflets. CONCLUSION: Normal M-mode echo, ejection fraction 66%. TWO-D ECHO: Long axis view showed normal sized left ventricle with normal wall motion, mitral valve shows normal excursion. Left atrium normal. Aortic root shows normal dimension, normal excursion of aortic leaflets. Short axis view of mitral valve normal. Short axis view of aortic valve normal. Apical four chamber view showed normal sized left ventricle, left atrium, right ventricle, right atrium, tricuspid and mitral valve. Ejection fraction 66%. Minimal hypertrophy of the left ventricle, ejection fraction 66%. CONCLUSION: Minimal hypertrophy of the left ventricle, ejection fraction 66%. Doppler study shows mild mitral regurgitation, mild tricuspid regurgitation, right ventricular systolic pressure 50 mmHg with mild pulmonary hypertension. [facility]# [id number]
== END 2018-05-13 14:25 | disposition home or self-care (01) | DRG 206 ==
LOC: ER 12:34 → TELE 16:50
PROVIDERS: ADMIT Internal Medicine; ATTEND Internal Medicine
DX: M94.0 Chondrocostal junction syndrome [Tietze] (principal); J40 Bronchitis, not specified as acute or chronic; I10 Essential (primary) hypertension; E03.9 Hypothyroidism, unspecified; E78.5 Hyperlipidemia, unspecified; E78.00 Pure hypercholesterolemia, unspecified; R07.89 Other chest pain; K21.9 Gastro-esophageal reflux disease without esophagitis; R05 Cough; T44.5X5A Adverse effect of predominantly beta-adrenoreceptor agonists, initial encounter; Y92.89 Other specified places as the place of occurrence of the external cause
CPT/HCPCS: 36415-UA; 71045-TC; 71046-TC; 71275-TC; 80048-TC; 80053-TC; 80061-TC; 81001-TC; 83036-90; 83735-TC; 83880-TC; 84100-TC; 84443-TC; 84484-TC; 85025-TC; 85379-TC; 85610-TC; 90779; 93005; 93307-TC; 93970-TC-50; 94640; 94760; 96375; J0456; J0696; J2920; J7613; Z7610

== ENCOUNTER 2018-08-07 14:29 | Emergency (ER) | payer OTHER ==
--- NOTE | 2018-08-07 15:46 | ED Physician Chart ---
ED Chief Complaint/HPI - Patient Information Date Seen:: 08/07/18 Time Seen:: 15:16 Chief Complaint:: Headaches History of Present Illness:: onset x 3 days of intermittent, diffuse, dull H/As, neck pain, and Abdominal Pain; pt denies trauma, LOC, ALOC, AMS, visual or gait changes, E/As, S/T, C/P, cough, SOB, A/N/V/D/C, fever, chills, or urinary s/s Allergies:: Allergies Allergy/AdvReac Type Severity Reaction Status Date / Time No Known Allergies Allergy Verified 03/26/18 10:03 Vitals:: Vital Signs - 8 hr 08/07/18 15:16 Temp 98.2 F HR 107 RR 23 BP 161/85 O2 Sat % 95 Historian:: Patient, Family Member Review:: Nurse's Note Reviewed, Old Chart Reviewed <Daniel Erazo - Last Filed: 08/08/18 09:31> - Patient Information Allergies:: Allergies Allergy/AdvReac Type Severity Reaction Status Date / Time No Known Allergies Allergy Verified 03/26/18 10:03 Vitals:: Vital Signs - 8 hr 08/07/18 08/07/18 19:53 20:51 Temp 98.1 F 98.2 F HR 90 88 RR 18 18 BP 141/66 140/74 O2 Sat % 98 98 <Linda Antunez - Last Filed: 08/09/18 09:28> ED Review of Systems - Review of Systems General/Constitutional: No fever, No chills, No weight loss, No weakness, No diaphoresis, No edema, No loss of appetite Skin: No skin lesions, No rash, No bruising Head: No headache, No light-headedness Eyes: No loss of vision, No pain, No diplopia ENT: No earache, No nasal drainage, No sore throat, No tinnitus Neck: Neck pain, No swelling, No thyromegaly, No stiffness, No mass noted Cardio Vascular: No chest pain, No palpitations, No PND, No orthopnea, No edema Pulmonary: No SOB, No cough, No sputum, No wheezing GI: No nausea, No vomiting, No diarrhea, Pain, No melena, No hematochezia, No constipation, No hematemesis G/U: No dysuria, No frequency, No hematuria, No nacturia [employer] 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 vaginal discharge, No abnormal vaginal bleed, No contraction Musculoskeletal: No bone or joint pain, No back pain, No muscle pain Endocrine: No polyuria, No polydipsia Psychiatric: No prior psych history, No depression, No anxiety, No suicidal ideation, No homicidal ideation, No auditory hallucination, No visual hallucination Hematopoietic: No bruising, No lymphadenopathy Allergic/Immuno: No urticaria, No angioedema Neurological: No syncope, No focal symptoms, No weakness, No paresthesia, Headache, No seizure, No dizziness, No confusion, No vertigo <Daniel Erazo - Last Filed: 08/08/18 09:31> ED Past Medical History - Past Medical History Obtainable: Yes Past Medical History: HTN, Dyslipidemia, PUD/GERD, Thyroid disorder Family History: HTN Social History: Non Smoker, No Alcohol, No Drug Use, Surgical History: None Psychiatricy History: None Medication: Reviewed <Daniel Erazo Last Filed: 08/08/18 09:31> Family Medical History - Family Member Mother History Unknown: Yes Ethnicity: <Daniel Erazo Last Filed: 08/08/18 09:31> ED Physical Exam - Physical Examination General/Constitutional: Awake, Well-developed, well-nourished, Alert, No distress, GCS 15, Non-toxic appearing, Ambulatory Head: Atraumatic Eyes: Lids, conjuctiva normal, PERRL, EOMI Skin: Nl inspection, No rash, No skin lesions, No ecchymosis, Well hydrated, No lymphadenopathy ENMT: External ears, nose nl, TM canals nl, Nasal exam nl, Lips, teeth, gums nl , Oropharynx nl, Tonsils nl Neck: Nontender, Full ROM w/o pain, No JVD, No nuchal rigidity, No bruit, No mass, No stridor Other Neck comments:: supple; no meningeal signs; no cervical tenderness; no bruits Respiratory: Nl effort/Exclusion, Clear to Auscultation, No Wheeze/Rhonchi/Rales Cardio Vascular: RRR, No murmur, gallop, rubs, NL S1 S2, Carotid/Femoral/Distal pulses equal bilaterally GI: No tenderness/rebounding/guarding, No organomegaly, No hernia, Normal BS's, Nondistended, No mass/bruits, No McBurney tenderness Other GI comments:: no pulsatile masses : No CVA tenderness Extremities: No tenderness or effusion, Full ROM, normal strength in all extremities, No edema, Normal digits & nails Neuro/Psych: Alert/oriented, DTR's symmetric, Normal sensory exam, Normal motor strength, Judgement/insight normal, Mood normal, Normal gait, No focal deficits Misc: Normal back, No paraspinal tenderness <Daniel Erazo - Last Filed: 08/08/18 09:31> ED Labs/Radiology/EKG Results - Lab Results Comments:: Reviewed - Radiology Results Comments:: NAD - EKG Interpretations EKG Time:: 15:19 Rate & Rhythm: 98; NSR Comments:: non-specific st-t changes <Daniel Erazo - Last Filed: 08/08/18 09:31> - Lab Results Results: Laboratory Tests 08/07/18 08/07/18 08/07/18 15:25 15:25 15:25 WBC 9.6 RBC 4.57 Hgb 12.4 Hct 37.8 L MCV 82.8 MCH 27.1 MCHC Differential 32.8 RDW 15.0 Plt Count 292 MPV 6.5 Neutrophils % 78.5 Lymphocytes % 15.5 L Monocytes % 5.0 Eosinophils % 0.3 Basophils % 0.7 PT 9.9 INR 0.95 Sodium 139 Potassium 3.6 Chloride 103 Carbon Dioxide 23.0 Anion Gap 16.6 H BUN 26 H Creatinine 0.8 Est GFR ( Amer) TNP Est GFR (Non-Af Amer) TNP BUN/Creatinine Ratio 32.5 Glucose 115 H Calcium 9.7 Total Bilirubin 0.4 AST 34 ALT 35 Alkaline Phosphatase 71 Creatine Kinase 126 Troponin I B-Natriuretic Peptide Total Protein 7.5 Albumin 4.4 Globulin 3.1 Albumin/Globulin Ratio 1.4 Triglycerides 187 H Cholesterol 191 LDL Cholesterol Direct 134 HDL Cholesterol 45 Amylase Lipase Urine Source Urine Color Urine Clarity Urine pH Ur Specific [place] Urine Protein Urine Glucose (UA) Urine Ketones Urine Blood Urine Nitrate Urine Bilirubin Urine Urobilinogen Ur Leukocyte Esterase Urine RBC Urine WBC Ur Epithelial Cells Urine Bacteria 08/07/18 08/07/18 08/07/18 15:25 15:25 15:25 WBC RBC Hgb Hct MCV MCH MCHC Differential RDW Plt Count MPV Neutrophils % Lymphocytes % Monocytes % Eosinophils % Basophils % PT INR Sodium Potassium Chloride Carbon Dioxide Anion Gap BUN Creatinine Est GFR ( Amer) Est GFR (Non-Af Amer) BUN/Creatinine Ratio Glucose Calcium Total Bilirubin AST ALT Alkaline Phosphatase Creatine Kinase Troponin I 0.02 B-Natriuretic Peptide 96.7 Total Protein Albumin Globulin Albumin/Globulin Ratio Triglycerides Cholesterol LDL Cholesterol Direct HDL Cholesterol Amylase 33 Lipase 19 Urine Source Urine Color Urine Clarity Urine pH Ur Specific [place] Urine Protein Urine Glucose (UA) Urine Ketones Urine Blood Urine Nitrate Urine Bilirubin Urine Urobilinogen Ur Leukocyte Esterase Urine RBC Urine WBC Ur Epithelial Cells Urine Bacteria 08/07/18 19:10 WBC RBC Hgb Hct MCV MCH MCHC Differential RDW Plt Count MPV Neutrophils % Lymphocytes % Monocytes % Eosinophils % Basophils % PT INR Sodium Potassium Chloride Carbon Dioxide Anion Gap BUN Creatinine Est GFR ( Amer) Est GFR (Non-Af Amer) BUN/Creatinine Ratio Glucose Calcium Total Bilirubin AST ALT Alkaline Phosphatase Creatine Kinase Troponin I B-Natriuretic Peptide Total Protein Albumin Globulin Albumin/Globulin Ratio Triglycerides Cholesterol LDL Cholesterol Direct HDL Cholesterol Amylase Lipase Urine Source CLEAN C Urine Color YELLOW Urine Clarity CLEAR Urine pH 6.0 Ur Specific [place] <= 1.005 Urine Protein NEGATIVE Urine Glucose (UA) NEGATIVE Urine Ketones NEGATIVE Urine Blood NEGATIVE Urine Nitrate NEGATIVE Urine Bilirubin NEGATIVE Urine Urobilinogen 0.2 Ur Leukocyte Esterase TRACE H Urine RBC 0-2 Urine WBC 2-5 Ur Epithelial Cells FEW Urine Bacteria FEW <Linda Antunez - Last Filed: 08/09/18 09:28> ED Septic Shock - <6hrs of presentation: Vital Signs: Vital Signs - 8 hr 08/07/18 15:16 Temp 98.2 F HR 107 RR 23 BP 161/85 O2 Sat % 95 <Daniel Erazo - Last Filed: 08/08/18 09:31> - . Is Septic Shock (SBP<90, OR Lactate>4 mmol\L) present?: No - <6hrs of presentation: Vital Signs: Vital Signs - 8 hr 08/07/18 08/07/18 19:53 20:51 Temp 98.1 F 98.2 F HR 90 88 RR 18 18 BP 141/66 140/74 O2 Sat % 98 98 <Linda Antunez - Last Filed: 08/09/18 09:28> ED Reassessment (Disposition) - Reassessment Reassessment Condition:: Improved - Diagnosis Diagnosis:: Dx: Headaches; Vascular Cephalgia; Dehydration <Daniel Erazo - Last Filed: 08/08/18 09:31> - Reassessment Reassessment:: UTI - Rocephin 1g IV Reassessment Condition:: Improved - Aftercare/Follow up Instructions Notes:: F/u PCP or return to ER if symptoms worsen F/u painting supervisor Medication Prescribed:: Bactrim DS 1 tab po bid x 3 days - Patient Disposition Discharge/Transfer:: Home <Linda Antunez - Last Filed: 08/09/18 09:28>
[2018-08-07 15:47] LABS: INR 0.95 (0.5-1.4); PROTHROMBIN TIME (TEST) 9.9 SECONDS (9.5-11.5)
[2018-08-07 15:59] LABS: HEMATOCRIT 37.8 % (41.0-60); HEMOGLOBIN 12.4 gm/dL (12-16); MEAN CELL VOLUME 82.8 fl (81-100); MEAN CORPUSCULAR HEMOGLOBIN 27.1 pg (27.0-31.0); RED BLOOD COUNT 4.57 Mil/cmm (3.80-5.20); WHITE BLOOD COUNT 9.6 Th/cmm (4.8-10.8)
[2018-08-07 16:00] LABS: % BASOPHILS 0.7 % (0.0-2.0); % EOSINOPHILS 0.3 % (0.0-5.0); % LYMPHOCYTES 15.5 % (20.0-50.0); % NEUTROPHILS 78.5 % (40.0-80.0); BASOPHILE ABSOLUTE 0.1 Th/cumm (0-0.2); LYMPHOCYTE ABSOLUTE 1.5 Th/cmm (1.5-3.0); MEAN CORPUSCULAR HGB CONC 32.8 pg (28.0-36.0); MEAN PLATELET VOLUME 6.5 fl; MONOCYTE ABSOLUTE 0.5 Th/cmm (0.3-1.0); NEUTROPHILE ABSOLUTE 7.5 Th/cmm (1.8-8.0); PLATELET COUNT 292 Th/cmm (150-400)
[2018-08-07 16:04] LABS: ALB/GLOB RATIO 1.4 (1.0-1.8); ALBUMIN 4.4 gm/dL (3.7-5.3); ALKALINE PHOSPHATASE 71 U/L (34-104); ANION GAP 16.6 (7.0-16.0); BILIRUBIN,TOTAL 0.4 mg/dL (0.3-1.0); BUN - UREA NITROGEN 26 mg/dL (7-25); CALCIUM SERUM 9.7 mg/dL (8.6-10.3); CHLORIDE 103 mEq/L (98-107); CHOLESTEROL 191 mg/dL (<200); CREATININE - SERUM 0.8 mg/dL (0.6-1.2); CREATININE KINASE 126 U/L (30-223); GLUCOSE 115 mg/dL (70-105); HDL -HIGH DENSITY LIPOPROTEIN 45 mg/dL (23-92); POTASSIUM SERUM 3.6 mEq/L (3.5-5.1); SGOT 34 U/L (13-39); SGPT/ALT 35 U/L (7-52); SODIUM SERUM 139 mEq/L (136-145); TOTAL PROTEIN,SERUM 7.5 gm/dL (6.0-8.3); TRIGLYCERIDES 187 mg/dL (<150)
[2018-08-07] MEDS ORDERED: Sodium Chloride 0.9% 1,000 ML IV ONE (16:53)
[2018-08-07 18:03] LABS: AMYLASE SERUM 33 U/L (29-103); LIPASE 19 U/L (11-82)
[2018-08-07 19:15] LABS: URINE BILIRUBIN NEGATIVE (NEGATIVE); URINE BLOOD NEGATIVE (NEGATIVE); URINE GLUCOSE (UA) NEGATIVE (NEGATIVE); URINE KETONE NEGATIVE (NEGATIVE); URINE LEUKOCYTE ESTERASE TRACE (NEGATIVE); URINE MICROSCOPIC INDICATED? YES; URINE NITRATE NEGATIVE (NEGATIVE); URINE PROTEIN NEGATIVE (NEGATIVE); URINE SOURCE CLEAN C; URINE UROBILINOGEN 0.2 E.U./dL (0.2 - 1.0)
[2018-08-07 19:21] LABS: URINE CLARITY CLEAR (CLEAR); URINE COLOR YELLOW
[2018-08-07 19:23] LABS: URINE BACTERIA FEW /hpf (NONE SEEN); URINE EPITHELIAL CELLS FEW /lpf (FEW); URINE RBC 0-2 /hpf (0-5)
[2018-08-07] MEDS ORDERED: cefTRIAXone 1 GM in Sodium Chloride 0.9% 50 ML IV ONE (19:53)
--- NOTE | 2018-08-08 08:03 | Diagnostic Imaging Report ---
CT scan of the brain without intravenous contrast HISTORY: Headache Total DLP equals 627 CTDI equals 36.5 Axial sections were obtained from the base of the skull to the vertex. There is prominence/enlargement of the ventricular system size. Associated enlargement of cerebral sulci and subarachnoid cisterns. Findings are consistent with changes of generalized cerebral atrophy. No acute parenchymal abnormalities. No acute cerebral hemorrhage. Hypodensity is seen within the supratentorial white matter regions without mass effect. The findings may be associated with chronic small vessel ischemic disease. No extra-axial masses or abnormal fluid collections. IMPRESSION: 1. No acute abnormalities 2. Cerebral atrophy 3. Supratentorial white matter changes that may reflect chronic small vessel ischemic disease
--- NOTE | 2018-08-08 08:37 | Diagnostic Imaging Report ---
CHEST X-RAY: AP view INDICATION: Shortness of breath COMPARISON: 05/13/2018 FINDINGS: There is accentuation of the interstitial lung markings. There is no focal consolidation or pleural effusions The heart is at the upper limits of normal in size. Degenerative changes of the spine are noted. IMPRESSION: Accentuation of interstitial lung markings which may be due to chronic lung changes. No focal consolidation identified. A marginal degree of congestion cannot be excluded.
--- NOTE | 2018-08-08 09:19 | Diagnostic Imaging Report ---
CT abdomen and pelvis without intravenous contrast Indication: Abdominal pain Comparison: CT abdomen and pelvis on 03/26/2018, Technique: Axial images were obtained from the lung bases to the bilateral proximal femurs without IV contrast. Coronal reconstructions were made. total DLP: 743, CTDI15.5 FINDINGS: Hypoventilatory and atelectatic changes of the lung bases are noted. Assessment of the solid organs is limited due to lack of IV contrast. No evidence of focal hepatic, splenic, or pancreatic lesions. Splenic artery calcifications are noted. No focal adrenal images. No evidence of hydronephrosis or nephrolithiasis. Distended urinary bladder is noted. There is a 2.3 cm left adnexal cystic lesion also seen on previous examination and appears to slightly decreased in size. Moderate stool is seen throughout the colon. There is 1 cm calcification possibly an appendicolith along the appendiceal origin or possibly along the cecal region.. No evidence of acute appendicitis. Diffuse atherosclerosis is noted. Advanced Degenerative changes of the spine are noted. IMPRESSION: Moderate stool throughout the colon. No evidence of bowel obstruction. 1 cm calcification possibly an appendicolith along the appendiceal origin or possibly along the cecal region. Similar findings were seen on prior exam.No evidence of acute appendicitis. 2.3 cm left adnexal region also seen on prior exam. This may have slightly decreased in size. Given patient's age, short-term follow-up ultrasound is recommended. Distended urinary bladder. Diffuse atherosclerosis.
--- NOTE | 2018-08-08 09:34 | Diagnostic Imaging Report ---
CT cervical spine without IV contrast HISTORY: Pain COMPARISON: None Technique: Axial images were obtained from the skull base to the upper thoracic spine without IV contrast. Multiplanar reconstructions were made. Total DLP: 629, CTDI35 FINDINGS: Images of the cervical spine obtained without contrast demonstrate no evidence of acute fracture or subluxation. Moderate degenerative changes are noted including moderate disc space loss of height at C5/C6. Multilevel [id number] facet changes are noted. No prevertebral soft tissue swelling. The lung apices demonstrate hypoventilatory changes. IMPRESSION: No evidence of acute fracture or subluxation. Degenerative changes.
== END 2018-08-07 21:05 | disposition home or self-care (01) ==
LOC: ER 14:29
DX: G44.1 Vascular headache, not elsewhere classified (principal); E86.0 Dehydration; I10 Essential (primary) hypertension; E78.5 Hyperlipidemia, unspecified; K21.9 Gastro-esophageal reflux disease without esophagitis; E07.9 Disorder of thyroid, unspecified
CPT/HCPCS: 99284; 96365; 96361; 96375; 94760; 93005; 71045; 70450; 72125; 74176; 84484; 83880; 36415; 85025; 85610; 81001; 82150; 82550; 83690; 80053; 80061; 87081; J1885; J0696; Z7502

== ENCOUNTER 2019-01-22 20:22 | Inpatient (IN) | payer OTHER ==
--- NOTE | 2019-01-22 21:36 | ED Physician Chart ---
ED Chief Complaint/HPI - Patient Information Date Seen:: 01/22/19 Time Seen:: 21:33 Chief Complaint:: Headache and right ear pain History of Present Illness:: 73 yo female with history of hyperlipidemia and hypothyroidism, was brought by daughter to ER due to headache, right ear pain, right neck pain and right shoulder pain for 4 days. At ER, patient was repeatedly twitching her right eyelids. Patient also had right eye pain and her recent eye exam by mica splitter was unremarkable. Patient had similar headache and neck pain [address] head on 08/07/18 showed cerebral atrophy without acute intracranial abnormalities. Her CT C-spine on 08/07/18 showed degenerative changes without acute fracture or subluxation. Allergies:: Allergies Allergy/AdvReac Type Severity Reaction Status Date / Time No Known Allergies Allergy Verified 03/26/18 10:03 Vitals:: Vital Signs - 8 hr 01/22/19 20:30 Temp 97 F HR 84 RR 18 BP 139/54 O2 Sat % 97 ED Review of Systems - Review of Systems General/Constitutional: No fever, No chills Skin: No bruising Head: Headache Eyes: No loss of vision, Pain ENT: Earache Neck: Neck pain, No stiffness Cardio Vascular: No chest pain Pulmonary: No SOB GI: No nausea, No vomiting Musculoskeletal: No bone or joint pain Neurological: No syncope, Headache, No seizure ED Past Medical History - Past Medical History Past Medical History: Dyslipidemia, Thyroid disorder (Hypothyroidism) Social History: Non Smoker, No Alcohol, No Drug Use Family Medical History - Family Member Mother History Unknown: Yes Ethnicity: ED Physical Exam - Physical Examination General/Constitutional: Awake, Alert Head: Atraumatic Eyes: PERRL, EOMI Other Eyes comments:: Constantly blinking right eye and twitching right eyelids Skin: No ecchymosis ENMT: Nasal exam nl Neck: No nuchal rigidity Other Neck comments:: Tenderness of the right side of neck Respiratory: No Wheeze/Rhonchi/Rales Cardio Vascular: RRR, No murmur, gallop, rubs, NL S1 S2 GI: No tenderness/rebounding/guarding Extremities: normal strength in all extremities Neuro/Psych: No focal deficits ED Labs/Radiology/EKG Results - Lab Results Results: Laboratory Last Values WBC 4.3 Th/cmm (4.8-10.8) L D 01/23/19 05:40 RBC 3.13 Mil/cmm (3.80-5.20) L 01/23/19 05:40 Hgb 7.0 gm/dL (12-16) L* 01/23/19 05:40 Hct 22.5 % (41.0-60) L 01/23/19 05:40 MCV 71.8 fl (81-100) L 01/23/19 05:40 MCH 22.3 pg (27.0-31.0) L 01/23/19 05:40 MCHC Differential 31.1 pg (28.0-36.0) 01/23/19 05:40 RDW 16.2 % (11.5-20.0) 01/23/19 05:40 Plt Count 251 Th/cmm (150-400) 01/23/19 05:40 MPV 6.5 fl 01/23/19 05:40 Add Manual Diff YES 01/23/19 05:40 Neutrophils % 45.3 % (40.0-80.0) 01/22/19 22:10 Lymphocytes % 40.5 % (20.0-50.0) 01/22/19 22:10 Monocytes % 9.3 % (2.0-10.0) 01/22/19 22:10 Eosinophils % 3.6 % (0.0-5.0) 01/22/19 22:10 Basophils % 1.3 % (0.0-2.0) 01/22/19 22:10 PT 9.3 SECONDS (9.5-11.5) L 01/22/19 22:10 INR 0.88 (0.5-1.4) 01/22/19 22:10 PTT (Actin FS) 19.2 SECONDS (26.0-38.0) L 01/22/19 22:10 Sodium 140 mEq/L (136-145) 01/23/19 05:40 Potassium 4.2 mEq/L (3.5-5.1) 01/23/19 05:40 Chloride 109 mEq/L (98-107) H 01/23/19 05:40 Carbon Dioxide 22.0 mEq/L (21.0-31.0) 01/23/19 05:40 Anion Gap 13.2 (7.0-16.0) 01/23/19 05:40 BUN 22 mg/dL (7-25) 01/23/19 05:40 Creatinine 0.8 mg/dL (0.6-1.2) 01/23/19 05:40 Est GFR ( Amer) TNP 01/23/19 05:40 Est GFR (Non-Af Amer) TNP 01/23/19 05:40 BUN/Creatinine Ratio 27.5 01/23/19 05:40 Glucose 108 mg/dL (70-105) H 01/23/19 05:40 Calcium 8.6 mg/dL (8.6-10.3) 01/23/19 05:40 Total Bilirubin 0.3 mg/dL (0.3-1.0) 01/23/19 05:40 AST 25 U/L (13-39) 01/23/19 05:40 ALT 19 U/L (7-52) 01/23/19 05:40 Alkaline Phosphatase 72 U/L (34-104) 01/23/19 05:40 Troponin I 0.01 ng/mL (0.01-0.05) 01/22/19 22:10 Total Protein 6.1 gm/dL (6.0-8.3) 01/23/19 05:40 Albumin 3.7 gm/dL (3.7-5.3) 01/23/19 05:40 Globulin 2.4 gm/dL 01/23/19 05:40 Albumin/Globulin Ratio 1.5 (1.0-1.8) 01/23/19 05:40 Triglycerides 384 mg/dL (<150) H 01/22/19 22:10 Cholesterol 143 mg/dL (<200) 01/22/19 22:10 LDL Cholesterol Direct 71 mg/dL (75-193) L 01/22/19 22:10 HDL Cholesterol 29 mg/dL (23-92) 01/22/19 22:10 Urine Source MIDSTREAM 01/23/19 02:00 Urine Color YELLOW 01/23/19 02:00 Urine Clarity HAZY (CLEAR) 01/23/19 02:00 Urine pH 5.5 (4.6 - 8.0) 01/23/19 02:00 Ur Specific [place] 1.025 (1.005-1.030) 01/23/19 02:00 Urine Protein NEGATIVE mg/dL (NEGATIVE) 01/23/19 02:00 Urine Glucose (UA) NEGATIVE mg/dL (NEGATIVE) 01/23/19 02:00 Urine Ketones NEGATIVE mg/dL (NEGATIVE) 01/23/19 02:00 Urine Blood NEGATIVE (NEGATIVE) 01/23/19 02:00 Urine Nitrate NEGATIVE (NEGATIVE) 01/23/19 02:00 Urine Bilirubin NEGATIVE (NEGATIVE) 01/23/19 02:00 Urine Urobilinogen 0.2 E.U./dL (0.2 - 1.0) 01/23/19 02:00 Ur Leukocyte Esterase MODERATE (NEGATIVE) H 01/23/19 02:00 Urine RBC 0-2 /hpf (0-5) 01/23/19 02:00 Urine WBC 10-25 /hpf (0-5) H 01/23/19 02:00 Ur Epithelial Cells FEW /lpf (FEW) 01/23/19 02:00 Urine Bacteria MODERATE /hpf (NONE SEEN) H 01/23/19 02:00 - Radiology Results Results: CT head wo contrast: no acute intracranial abnormalities ED Assessment - Assessment General Assessment: - Headache, right eye pain, right ear pain and right neck pain. The differential diagnosis includes migraine vs trigeminal neuralgia. - Anemia, microcytic, hypochromic - Dehydration - Urinary tract infection Assessment/Comments:: CBC, CMP, Trop, lipid panel, UA CT head wo contrast Tylenol 650 mg PO NS IV 1L bolus Admit for further work up of headache and anemia ED Septic Shock - . Is Septic Shock (SBP<90, OR Lactate>4 mmol\L) present?: No - <6hrs of presentation: Vital Signs: Vital Signs - 8 hr 01/22/19 20:30 Temp 97 F HR 84 RR 18 BP 139/54 O2 Sat % 97 ED Reassessment (Disposition) - Reassessment Reassessment Condition:: Improved - Patient Disposition Discharge/Transfer:: Acute Care w/in this hosp Admitting Medical Physician:: Reinier Le
[2019-01-22 22:27] LABS: % BASOPHILS 1.3 % (0.0-2.0); % EOSINOPHILS 3.6 % (0.0-5.0); % LYMPHOCYTES 40.5 % (20.0-50.0); % MONOCYTES 9.3 % (2.0-10.0); % NEUTROPHILS 45.3 % (40.0-80.0); BASOPHILE ABSOLUTE 0.1 Th/cumm (0-0.2); EOSINOPHILE ABSOLUTE 0.2 Th/cmm (0.1-0.4); HEMATOCRIT 24.9 % (41.0-60); LYMPHOCYTE ABSOLUTE 2.2 Th/cmm (1.5-3.0); MEAN CELL VOLUME 71.1 fl (81-100); MEAN CORPUSCULAR HEMOGLOBIN 22.6 pg (27.0-31.0); MEAN CORPUSCULAR HGB CONC 31.8 pg (28.0-36.0); MEAN PLATELET VOLUME 6.5 fl; MONOCYTE ABSOLUTE 0.5 Th/cmm (0.3-1.0); NEUTROPHILE ABSOLUTE 2.5 Th/cmm (1.8-8.0); PLATELET COUNT 308 Th/cmm (150-400); RED BLOOD COUNT 3.51 Mil/cmm (3.80-5.20); RED CELL DISTRIBUTION WIDTH 16.6 % (11.5-20.0); WHITE BLOOD COUNT 5.5 Th/cmm (4.8-10.8)
[2019-01-22 22:29] LABS: HEMOGLOBIN 7.9 gm/dL (12-16)
[2019-01-22 22:52] LABS: INR 0.88 (0.5-1.4); PROTHROMBIN TIME (TEST) 9.3 SECONDS (9.5-11.5)
[2019-01-22 23:04] LABS: CHOLESTEROL 143 mg/dL (<200); HDL -HIGH DENSITY LIPOPROTEIN 29 mg/dL (23-92); TRIGLYCERIDES 384 mg/dL (<150)
[2019-01-22 23:06] LABS: ALB/GLOB RATIO 1.4 (1.0-1.8); ALBUMIN 4.1 gm/dL (3.7-5.3); ALKALINE PHOSPHATASE 90 U/L (34-104); ANION GAP 14.8 (7.0-16.0); BILIRUBIN,TOTAL 0.2 mg/dL (0.3-1.0); BUN - UREA NITROGEN 24 mg/dL (7-25); CARBON DIOXIDE 23.1 mEq/L (21.0-31.0); CHLORIDE 105 mEq/L (98-107); CREATININE - SERUM 0.8 mg/dL (0.6-1.2); GLUCOSE 118 mg/dL (70-105); POTASSIUM SERUM 3.9 mEq/L (3.5-5.1); SGOT 32 U/L (13-39); SGPT/ALT 23 U/L (7-52); SODIUM SERUM 139 mEq/L (136-145)
[2019-01-22] MEDS ORDERED: Sodium Chloride 0.9% 500 ML IV ONE (23:56)
[2019-01-23] MEDS ORDERED: Pneumococcal Vaccine 0.5 mL Vial IM ONE (01:57)
[2019-01-23 03:00] LABS: URINE SOURCE MIDSTREAM
[2019-01-23 03:20] LABS: URINE BILIRUBIN NEGATIVE (NEGATIVE); URINE BLOOD NEGATIVE (NEGATIVE); URINE CLARITY HAZY (CLEAR); URINE COLOR YELLOW; URINE GLUCOSE (UA) NEGATIVE (NEGATIVE); URINE KETONE NEGATIVE (NEGATIVE); URINE MICROSCOPIC INDICATED? YES; URINE PH 5.5 (4.6 - 8.0)
[2019-01-23 03:21] LABS: URINE LEUKOCYTE ESTERASE MODERATE (NEGATIVE); URINE NITRATE NEGATIVE (NEGATIVE); URINE PROTEIN NEGATIVE (NEGATIVE); URINE UROBILINOGEN 0.2 E.U./dL (0.2 - 1.0)
[2019-01-23 03:26] LABS: URINE RBC 0-2 /hpf (0-5)
[2019-01-23 03:27] LABS: URINE BACTERIA MODERATE /hpf (NONE SEEN); URINE EPITHELIAL CELLS FEW /lpf (FEW)
--- NOTE | 2019-01-23 05:51 | History and Physical ---
History of Present Illness - HPI Chief Complaint: abd pain nausea vomiting weakness fatigue HPI: 73 y/o female who presents to [facility] ER for dizziness, lightheadness, fatigue and weakness. abd pain, nausea and vomiting. Patient has a previous medical history which includes HTN, dyslipidemia, PUD/GERD, thyroid disorder, OA neck. While in the ER patient had initial labwork which revealed the following ... wbc 5.9 H/H 7.9/24.9 plat 308K Na 139 K 3.9 Bun/Cr 24/0.8 glu 118 UA +leukoexterase WBC's 10-25 bact moderate Patient was subsequently admitted for further evaluation and treatment. Vital Signs: Last Vital Signs Temp 97.7 F 01/23/19 04:00 Pulse 74 01/23/19 04:00 Resp 18 01/23/19 04:00 BP 128/54 01/23/19 04:00 Pulse Ox 97 01/23/19 04:00 Past Medical History Cardiovascular: Report: HTN, Hyperlipidemia Pulmonary: Report: No Pertinent Hx CUTTER V GROOVE: Report: No Pertinent Hx GI: Report: GERD, Peptic Ulcer Psych: Report: No Pertinent Hx Musculoskeletal: Report: No Pertinent Hx Rheumatologic: Report: No pertinent Hx Infectious Disease: Report: No Pertinent Hx Renal/: Report: No Pertinent Hx Endocrine: Report: Hypothyroidism Dermatology: Report: No Pertinent Hx - Past Surgical History Past Surgical History: No pertinent Hx Family Medical History - Family Member Mother History Unknown: Yes Ethnicity: Social History Smoke: No Alcohol: None Drugs: None Lives: With Family - Medications Home Medications: Home Medication Medication Instructions Recorded Type Furosemide [Lasix] 20 mg PO DAILY 03/26/18 History Levothyroxine [Synthroid] 0.05 mg PO QDAC 03/26/18 History Lovastatin [Altoprev] 40 mg PO Q24H 05/11/18 History Diazepam [Valium] 10 mg PO HS PRN 01/22/19 History Lisinopril [Zestril*] 40 mg PO DAILY 01/22/19 History - Allergies Allergies/Adverse Reactions: Allergies Allergy/AdvReac Type Severity Reaction Status Date / Time No Known Allergies Allergy Verified 03/26/18 10:03 Review of Systems - Review of Systems Constitutional: Report: Weakness, Malaise Eyes: Report: No Significant ENT: Report: No Significant Respiratory: Report: No Significant Cardiovascular: Report: No Significant Gastrointestinal: Report: Nausea, Vomiting Genitourinary: Report: No Significant Musculoskeletal: Report: No Significant Skin: Report: No Significant Neurological: Report: Weakness Physical Exam - Physical Exam HEENT: Report: Ears Nose Throat within normal limits, Pharnyx within normal limits Neck: Report: Within normal limits Cardiovascular Systems: Report: +s1/s2 noted, Regular, Rate and Rhythm Respiratory: Report: Breath Sounds are within normal limits Abdomen: Report: Non-tender to palpation Back: Report: Inspection of back is within normal limits. Extremities: Report: Non-tender to palpation. Skin: Report: Other (slightly pale) Neuro/Psych: Report: Mood affect is within normal limits - Lab Results All Lab Results last 24 hours: Laboratory Results - last 24 hr 01/22/19 01/22/19 01/22/19 22:10 22:10 22:10 WBC 5.5 RBC 3.51 L Hgb 7.9 L* Hct 24.9 L MCV 71.1 L MCH 22.6 L MCHC Differential 31.8 RDW 16.6 Plt Count 308 MPV 6.5 Neutrophils % 45.3 Lymphocytes % 40.5 Monocytes % 9.3 Eosinophils % 3.6 Basophils % 1.3 PT 9.3 L INR 0.88 PTT (Actin FS) 19.2 L Sodium 139 Potassium 3.9 Chloride 105 Carbon Dioxide 23.1 Anion Gap 14.8 BUN 24 Creatinine 0.8 Est GFR ( Amer) TNP Est GFR (Non-Af Amer) TNP BUN/Creatinine Ratio 30.0 Glucose 118 H Calcium 9.0 Total Bilirubin 0.2 L AST 32 ALT 23 Alkaline Phosphatase 90 Troponin I Total Protein 7.0 Albumin 4.1 Globulin 2.9 Albumin/Globulin Ratio 1.4 Triglycerides Cholesterol LDL Cholesterol Direct HDL Cholesterol Urine Source Urine Color Urine Clarity Urine pH Ur Specific [place] Urine Protein Urine Glucose (UA) Urine Ketones Urine Blood Urine Nitrate Urine Bilirubin Urine Urobilinogen Ur Leukocyte Esterase Urine RBC Urine WBC Ur Epithelial Cells Urine Bacteria 01/22/19 01/22/19 01/23/19 22:10 22:10 02:00 WBC RBC Hgb Hct MCV MCH MCHC Differential RDW Plt Count MPV Neutrophils % Lymphocytes % Monocytes % Eosinophils % Basophils % PT INR PTT (Actin FS) Sodium Potassium Chloride Carbon Dioxide Anion Gap BUN Creatinine Est GFR ( Amer) Est GFR (Non-Af Amer) BUN/Creatinine Ratio Glucose Calcium Total Bilirubin AST ALT Alkaline Phosphatase Troponin I 0.01 Total Protein Albumin Globulin Albumin/Globulin Ratio Triglycerides 384 H Cholesterol 143 LDL Cholesterol Direct 71 L HDL Cholesterol 29 Urine Source MIDSTREAM Urine Color YELLOW Urine Clarity HAZY Urine pH 5.5 Ur Specific [place] 1.025 Urine Protein NEGATIVE Urine Glucose (UA) NEGATIVE Urine Ketones NEGATIVE Urine Blood NEGATIVE Urine Nitrate NEGATIVE Urine Bilirubin NEGATIVE Urine Urobilinogen 0.2 Ur Leukocyte Esterase MODERATE H Urine RBC 0-2 Urine WBC 10-25 H Ur Epithelial Cells FEW Urine Bacteria MODERATE H - Assessment Assessment: abd pain anemia r/o GI bleed r/o Colon CA UTI Hyperlipidemia HTN PUD/GERD Hypothyroidism OA - Plan Plan: GI consult stool occult UA repeat CBC,CMP today IV protonix IV rocephin
[2019-01-23 06:35] LABS: ALB/GLOB RATIO 1.5 (1.0-1.8); ALBUMIN 3.7 gm/dL (3.7-5.3); ALKALINE PHOSPHATASE 72 U/L (34-104); ANION GAP 13.2 (7.0-16.0); BILIRUBIN,TOTAL 0.3 mg/dL (0.3-1.0); BUN - UREA NITROGEN 22 mg/dL (7-25); CALCIUM SERUM 8.6 mg/dL (8.6-10.3); CHLORIDE 109 mEq/L (98-107); CREATININE - SERUM 0.8 mg/dL (0.6-1.2); GLUCOSE 108 mg/dL (70-105); POTASSIUM SERUM 4.2 mEq/L (3.5-5.1); SGOT 25 U/L (13-39); SGPT/ALT 19 U/L (7-52); SODIUM SERUM 140 mEq/L (136-145); TOTAL PROTEIN,SERUM 6.1 gm/dL (6.0-8.3)
[2019-01-23 06:46] LABS: HEMATOCRIT 22.5 % (41.0-60); MEAN CELL VOLUME 71.8 fl (81-100); MEAN CORPUSCULAR HEMOGLOBIN 22.3 pg (27.0-31.0); MEAN CORPUSCULAR HGB CONC 31.1 pg (28.0-36.0); MEAN PLATELET VOLUME 6.5 fl; PLATELET COUNT 251 Th/cmm (150-400); RED BLOOD COUNT 3.13 Mil/cmm (3.80-5.20); RED CELL DISTRIBUTION WIDTH 16.2 % (11.5-20.0)
[2019-01-23 06:57] LABS: WHITE BLOOD COUNT 4.3 Th/cmm (4.8-10.8)
[2019-01-23] MEDS: Levothyroxine 0.05 Mg Tab PO SCH (07:00)
--- NOTE | 2019-01-23 07:59 | Diagnostic Imaging Report ---
Head CT without intravenous contrast Indication: Headache Comparison: 08/07/2018 Technique: Axial images were obtained from the vertex to the skull base without IV contrast. Coronal reconstructions were made. Total DLP: 681, [id number] FINDINGS: Images of the brain obtained without contrast demonstrate no evidence of acute hemorrhage. The chan-white matter differentiation is preserved. The ventricles and basal cisterns are patent. No mass effect or midline shift. No evidence of a skull fracture or focal soft tissue swelling. There is mild mucosal thickening paranasal sinuses. Atherosclerosis noted. IMPRESSION: No acute intracranial abnormality. Atherosclerotic vascular disease.
[2019-01-23 09:35] LABS: BAND NEUTROPHILE 0 % (0-10); BASOPHIL 0 % (0-3); EOSINOPHIL 4 % (0-5); LYMPHOCYTE 46 % (20-50); MONOCYTE 10 % (2-10); NEUTROPHILS 40 % (40-80)
[2019-01-23] MEDS: Atorvastatin Calcium 10 MG TAB PO SCH (10:00)
[2019-01-23 14:55] LABS: ABSOLUTE RETICULOCYTE 34.8 Th/cmm; CORRECTED RETICULOCYTE COUNT 0.6 % (0.5-1.5); HEMATOCRIT 22.6 % (37.0-47.0); RBC RETICULOCYTE COUNT 3.16 Mil/cmm; RETICULOCYTES % COUNTED 1.1 % (0.5-1.5)
--- NOTE | 2019-01-24 01:13 | Consultation ---
DATE OF CONSULTATION: 01/23/2019 REASON FOR CONSULTATION: Severe anemia. HISTORY OF PRESENT ILLNESS: This consult was obtained through the request of Dr. Le for this 73-year-old with history of obesity, hypertension, hyperlipidemia, thyroid disease; admitted to the hospital for weakness, fatigue, dizziness, lightheadedness, found to be severely anemic, and hemoglobin dropped further. So GI consult was called in for further evaluation. The patient denies any weight loss. No nausea. No diarrhea. She complains of constipation. She is known to be anemic. She has been on iron, but she stopped taking it because of constipation. The patient had GI workup before, she claims she had it done about 2 years ago. Looking other records, she had a colonoscopy 03/2017 as well and she had a capsule endoscopy 08/2017. The patient denies any abdominal pain. PAST MEDICAL HISTORY: Obesity, hypertension, hyperlipidemia, and thyroid disease. PAST SURGICAL HISTORY: Negative. SOCIAL HISTORY: Denies smoking, alcohol, or drugs. FAMILY HISTORY: Noncontributory. REVIEW OF SYSTEMS: No weight loss. No nausea. She has constipation. ALLERGIES: No known drug allergies. MEDICATIONS: The patient is on Tylenol, Lipitor, Rocephin, Valium, Lasix, Synthroid, Zestril, Zofran, and Protonix. PHYSICAL EXAMINATION: GENERAL: The patient is awake, oriented to self, place, and time, in no acute distress. VITAL SIGNS: Blood pressure is 142/65, heart rate 75, respiratory rate 18, and temperature is 97.8. HEAD AND NECK: Pupils reactive to light. Extraocular muscles was not checked. Oral cavity, no lesion. NECK: Supple, no jugular venous distention, no carotid bruits or lymph node. CHEST: Good respiratory movements. LUNGS: Clear to auscultation. CARDIOVASCULAR: Showed regular rate and rhythm. No murmur or gallop. ABDOMEN: Obese, soft, positive bowel sounds, not tender. RECTAL: Showed smear of brown stools. No blood and some hemorrhoids. LABORATORY DATA: H and H are 7 and 22.5. Indices showed MCV of 71.8, RDW normal at 16.2, and MCHC was 31.1. IMPRESSION: A 73-year-old with severe anemia. ASSESSMENT AND PLAN: Anemia, most probably iron deficiency, most probably the patient needs to be on iron. Offered the patient endoscopy and colonoscopy, declined because she had several of them she claims and her son was present. So at this time recommendations: 1. Transfuse as needed. 2. Check serum iron, TIBC, ferritin, B12, folic acid. Check stool for occult blood. 3. Repeat GI workup if the patient agree. 4. Can be followed as an outpatient if needed. Other medical problems such as obesity, hypertension, hyperlipidemia, and hypothyroidism as per Dr. Le. Thank you, Dr. Le for allowing me to participate in the care of the patient. If you have any further questions, please let me know. JOB# [id number] CECILIA
[2019-01-24 05:56] LABS: HEMATOCRIT 26.4 % (41.0-60); HEMOGLOBIN 8.4 gm/dL (12-16); MEAN CELL VOLUME 73.5 fl (81-100); MEAN CORPUSCULAR HEMOGLOBIN 23.4 pg (27.0-31.0); MEAN CORPUSCULAR HGB CONC 31.8 pg (28.0-36.0); MEAN PLATELET VOLUME 6.5 fl; PLATELET COUNT 245 Th/cmm (150-400); RED CELL DISTRIBUTION WIDTH 16.7 % (11.5-20.0); WHITE BLOOD COUNT 4.3 Th/cmm (4.8-10.8)
[2019-01-24 06:40] LABS: EOSINOPHIL 5 % (0-5); LYMPHOCYTE 50 % (20-50); MONOCYTE 7 % (2-10); NEUTROPHILS 38 % (40-80)
[2019-01-24 06:41] LABS: PLATELET ESTIMATE ADEQUATE (NORMAL)
--- NOTE | 2019-01-24 06:41 | General Progress Note ---
Subjective - Review of Systems Service Date: 01/24/19 Subjective: Patient was seen and examined. No acute distress. s/p blood transfusion. doing fine. Objective - Results Result Diagrams: 01/24/19 05:40 01/23/19 05:40 Recent Labs: Laboratory Last Values WBC 4.3 Th/cmm (4.8-10.8) L 01/24/19 05:40 RBC 3.60 Mil/cmm (3.80-5.20) L 01/24/19 05:40 Hgb 8.4 gm/dL (12-16) L 01/24/19 05:40 Hct 26.4 % (41.0-60) L 01/24/19 05:40 MCV 73.5 fl (81-100) L 01/24/19 05:40 MCH 23.4 pg (27.0-31.0) L 01/24/19 05:40 MCHC Differential 31.8 pg (28.0-36.0) 01/24/19 05:40 RDW 16.7 % (11.5-20.0) 01/24/19 05:40 Plt Count 245 Th/cmm (150-400) 01/24/19 05:40 MPV 6.5 fl 01/24/19 05:40 Add Manual Diff YES 01/24/19 05:40 Neutrophils % 45.3 % (40.0-80.0) 01/22/19 22:10 Band Neutrophils % 0 % (0-10) 01/23/19 05:40 Lymphocytes % 40.5 % (20.0-50.0) 01/22/19 22:10 Monocytes % 9.3 % (2.0-10.0) 01/22/19 22:10 Eosinophils % 3.6 % (0.0-5.0) 01/22/19 22:10 Basophils % 1.3 % (0.0-2.0) 01/22/19 22:10 Neutrophils (Manual) 40 % (40-80) 01/23/19 05:40 Lymphocytes 46 % (20-50) 01/23/19 05:40 Monocytes 10 % (2-10) 01/23/19 05:40 Eosinophils 4 % (0-5) 01/23/19 05:40 Basophils 0 % (0-3) 01/23/19 05:40 Microcytosis 3+ 01/23/19 05:40 Total Retics Counted 1.1 % (0.5-1.5) 01/23/19 05:40 Absolute Retic 34.8 Th/cmm 01/23/19 05:40 Corrected Retic Count 0.6 % (0.5-1.5) 01/23/19 05:40 PT 9.3 SECONDS (9.5-11.5) L 01/22/19 22:10 INR 0.88 (0.5-1.4) 01/22/19 22:10 PTT (Actin FS) 19.2 SECONDS (26.0-38.0) L 01/22/19 22:10 Sodium 140 mEq/L (136-145) 01/23/19 05:40 Potassium 4.2 mEq/L (3.5-5.1) 01/23/19 05:40 Chloride 109 mEq/L (98-107) H 01/23/19 05:40 Carbon Dioxide 22.0 mEq/L (21.0-31.0) 01/23/19 05:40 Anion Gap 13.2 (7.0-16.0) 01/23/19 05:40 BUN 22 mg/dL (7-25) 01/23/19 05:40 Creatinine 0.8 mg/dL (0.6-1.2) 01/23/19 05:40 Est GFR ( Amer) TNP 01/23/19 05:40 Est GFR (Non-Af Amer) TNP 01/23/19 05:40 BUN/Creatinine Ratio 27.5 01/23/19 05:40 Glucose 108 mg/dL (70-105) H 01/23/19 05:40 Calcium 8.6 mg/dL (8.6-10.3) 01/23/19 05:40 Total Bilirubin 0.3 mg/dL (0.3-1.0) 01/23/19 05:40 AST 25 U/L (13-39) 01/23/19 05:40 ALT 19 U/L (7-52) 01/23/19 05:40 Alkaline Phosphatase 72 U/L (34-104) 01/23/19 05:40 Troponin I 0.01 ng/mL (0.01-0.05) 01/22/19 22:10 Total Protein 6.1 gm/dL (6.0-8.3) 01/23/19 05:40 Albumin 3.7 gm/dL (3.7-5.3) 01/23/19 05:40 Globulin 2.4 gm/dL 01/23/19 05:40 Albumin/Globulin Ratio 1.5 (1.0-1.8) 01/23/19 05:40 Triglycerides 384 mg/dL (<150) H 01/22/19 22:10 Cholesterol 143 mg/dL (<200) 01/22/19 22:10 LDL Cholesterol Direct 71 mg/dL (75-193) L 01/22/19 22:10 HDL Cholesterol 29 mg/dL (23-92) 01/22/19 22:10 Urine Source MIDSTREAM 01/23/19 02:00 Urine Color YELLOW 01/23/19 02:00 Urine Clarity HAZY (CLEAR) 01/23/19 02:00 Urine pH 5.5 (4.6 - 8.0) 01/23/19 02:00 Ur Specific [place] 1.025 (1.005-1.030) 01/23/19 02:00 Urine Protein NEGATIVE mg/dL (NEGATIVE) 01/23/19 02:00 Urine Glucose (UA) NEGATIVE mg/dL (NEGATIVE) 01/23/19 02:00 Urine Ketones NEGATIVE mg/dL (NEGATIVE) 01/23/19 02:00 Urine Blood NEGATIVE (NEGATIVE) 01/23/19 02:00 Urine Nitrate NEGATIVE (NEGATIVE) 01/23/19 02:00 Urine Bilirubin NEGATIVE (NEGATIVE) 01/23/19 02:00 Urine Urobilinogen 0.2 E.U./dL (0.2 - 1.0) 01/23/19 02:00 Ur Leukocyte Esterase MODERATE (NEGATIVE) H 01/23/19 02:00 Urine RBC 0-2 /hpf (0-5) 01/23/19 02:00 Urine WBC 10-25 /hpf (0-5) H 01/23/19 02:00 Ur Epithelial Cells FEW /lpf (FEW) 01/23/19 02:00 Urine Bacteria MODERATE /hpf (NONE SEEN) H 01/23/19 02:00 Blood Type O NEGATIVE 01/23/19 09:25 Antibody Screen NEGATIVE 01/23/19 09:25 Crossmatch See Detail 01/23/19 09:25 - Physical Exam Vitals and I&O: Vital Signs Temp 96.7 F 01/24/19 03:58 Pulse 74 01/24/19 03:58 Resp 18 01/24/19 03:58 BP 108/60 01/24/19 03:58 Pulse Ox 96 01/24/19 03:58 Intake & Output 01/23/19 01/23/19 01/24/19 06:59 18:59 06:59 Intake Total 750 50 Output Total 1 Balance 750 50 -1 Weight (lbs) 96.162 kg 96.162 kg 96.162 kg Intake: Intake, IV Amount 500 50 cefTRIAXone 1 gm In 50 Dextrose 5% 50 ml @ 100 mls/hr IV Q24H [facility] Rx#: [id number] Oral 250 Output: Urine 1 Other: # Voids 3 # Bowel Movements 0 Stool Characteristics Soft Weight Source Bedscale Bedscale Bedscale Active Medications: Current Medications Acetaminophen (Tylenol) 650 mg PO Q4H PRN PRN Reason: Pain or Fever >101 Stop: 03/24/19 00:59 Last Admin: 01/23/19 17:24 Dose: 650 mg Atorvastatin Calcium (Lipitor) 10 mg PO DAILY PATRICIA Stop: 03/24/19 08:59 Last Admin: 01/23/19 10:00 Dose: 10 mg Diazepam (Valium) 10 mg PO HS PRN PRN Reason: Insomnia Stop: 03/24/19 20:59 Last Admin: 01/23/19 20:42 Dose: 10 mg Docusate Sodium (Colace) 100 mg PO DAILY PATRICIA Stop: 03/24/19 17:59 Last Admin: 01/23/19 20:38 Dose: 100 mg Furosemide (Lasix) 20 mg PO DAILY PATRICIA Stop: 03/24/19 08:59 Last Admin: 01/23/19 10:00 Dose: 20 mg Ceftriaxone Sodium 1 gm/ (Dextrose) 50 mls @ 100 mls/hr IV Q24H PATRICIA Stop: 03/24/19 06:59 Last Infusion: 01/23/19 10:31 Dose: Infused Levothyroxine Sodium (Synthroid) 0.05 mg PO QDAC PATRICIA Stop: 03/24/19 07:29 Last Admin: 01/23/19 07:00 Dose: 0.05 mg Lisinopril (Zestril) 40 mg PO DAILY [facility] Stop: 03/24/19 08:59 Last Admin: 01/23/19 10:00 Dose: 40 mg Ondansetron HCl (Zofran) 4 mg IV Q4H PRN PRN Reason: Nausea Stop: 03/24/19 01:14 Pantoprazole Sodium (Protonix) 40 mg IVP DAILY [facility] Stop: 03/24/19 08:59 Last Admin: 01/23/19 09:59 Dose: 40 mg General: Alert, No acute distress HEENT: Atraumatic, PERRLA, EOMI Neck: Supple Cardiovascular: Regular rate, Normal S1, Normal S2 Lungs: Clear to auscultation Abdomen: Bowel sounds Extremities: no Clubbing, no Cyanosis, no Edema Neurological: Normal gait Assessment/Plan - Assessment Assessment: abd pain anemia r/o GI bleed r/o Colon CA UTI Hyperlipidemia HTN PUD/GERD Hypothyroidism OA - Plan Plan: UTI - wrote prescription for Bactrim DS x 7 days #14 f/u PMD in one week Iron Deficiency Anemia ... continue Ferrous Sulfate 325mg PO daily f/u PMD repeat CBC per PMD constipation ... colace 100mg PO daily PRN constipation.
[2019-01-24] MEDS: Levothyroxine 0.05 Mg Tab PO SCH (06:47)
[2019-01-24] MEDS: Atorvastatin Calcium 10 MG TAB PO SCH (08:30)
--- NOTE | 2019-01-24 10:28 | GI Progress Note ---
Subjective - Review of Systems Service Date: 01/24/19 Events since last encounter: No events Subjective: No GI complaint Objective - Results Result Diagrams: 01/24/19 05:40 01/23/19 05:40 Recent Labs: Laboratory Last Values WBC 4.3 Th/cmm (4.8-10.8) L 01/24/19 05:40 RBC 3.60 Mil/cmm (3.80-5.20) L 01/24/19 05:40 Hgb 8.4 gm/dL (12-16) L 01/24/19 05:40 Hct 26.4 % (41.0-60) L 01/24/19 05:40 MCV 73.5 fl (81-100) L 01/24/19 05:40 MCH 23.4 pg (27.0-31.0) L 01/24/19 05:40 MCHC Differential 31.8 pg (28.0-36.0) 01/24/19 05:40 RDW 16.7 % (11.5-20.0) 01/24/19 05:40 Plt Count 245 Th/cmm (150-400) 01/24/19 05:40 MPV 6.5 fl 01/24/19 05:40 Add Manual Diff YES 01/24/19 05:40 Neutrophils % 45.3 % (40.0-80.0) 01/22/19 22:10 Band Neutrophils % 0 % (0-10) 01/23/19 05:40 Lymphocytes % 40.5 % (20.0-50.0) 01/22/19 22:10 Monocytes % 9.3 % (2.0-10.0) 01/22/19 22:10 Eosinophils % 3.6 % (0.0-5.0) 01/22/19 22:10 Basophils % 1.3 % (0.0-2.0) 01/22/19 22:10 Neutrophils (Manual) 38 % (40-80) L 01/24/19 05:40 Lymphocytes 50 % (20-50) 01/24/19 05:40 Monocytes 7 % (2-10) 01/24/19 05:40 Eosinophils 5 % (0-5) 01/24/19 05:40 Basophils 0 % (0-3) 01/23/19 05:40 Platelet Estimate ADEQUATE (NORMAL) 01/24/19 05:40 Microcytosis 3+ 01/23/19 05:40 Total Retics Counted 1.1 % (0.5-1.5) 01/23/19 05:40 Absolute Retic 34.8 Th/cmm 01/23/19 05:40 Corrected Retic Count 0.6 % (0.5-1.5) 01/23/19 05:40 PT 9.3 SECONDS (9.5-11.5) L 01/22/19 22:10 INR 0.88 (0.5-1.4) 01/22/19 22:10 PTT (Actin FS) 19.2 SECONDS (26.0-38.0) L 01/22/19 22:10 Sodium 140 mEq/L (136-145) 01/23/19 05:40 Potassium 4.2 mEq/L (3.5-5.1) 01/23/19 05:40 Chloride 109 mEq/L (98-107) H 01/23/19 05:40 Carbon Dioxide 22.0 mEq/L (21.0-31.0) 01/23/19 05:40 Anion Gap 13.2 (7.0-16.0) 01/23/19 05:40 BUN 22 mg/dL (7-25) 01/23/19 05:40 Creatinine 0.8 mg/dL (0.6-1.2) 01/23/19 05:40 Est GFR ( Amer) TNP 01/23/19 05:40 Est GFR (Non-Af Amer) TNP 01/23/19 05:40 BUN/Creatinine Ratio 27.5 01/23/19 05:40 Glucose 108 mg/dL (70-105) H 01/23/19 05:40 Calcium 8.6 mg/dL (8.6-10.3) 01/23/19 05:40 Total Bilirubin 0.3 mg/dL (0.3-1.0) 01/23/19 05:40 AST 25 U/L (13-39) 01/23/19 05:40 ALT 19 U/L (7-52) 01/23/19 05:40 Alkaline Phosphatase 72 U/L (34-104) 01/23/19 05:40 Troponin I 0.01 ng/mL (0.01-0.05) 01/22/19 22:10 Total Protein 6.1 gm/dL (6.0-8.3) 01/23/19 05:40 Albumin 3.7 gm/dL (3.7-5.3) 01/23/19 05:40 Globulin 2.4 gm/dL 01/23/19 05:40 Albumin/Globulin Ratio 1.5 (1.0-1.8) 01/23/19 05:40 Triglycerides 384 mg/dL (<150) H 01/22/19 22:10 Cholesterol 143 mg/dL (<200) 01/22/19 22:10 LDL Cholesterol Direct 71 mg/dL (75-193) L 01/22/19 22:10 HDL Cholesterol 29 mg/dL (23-92) 01/22/19 22:10 Urine Source MIDSTREAM 01/23/19 02:00 Urine Color YELLOW 01/23/19 02:00 Urine Clarity HAZY (CLEAR) 01/23/19 02:00 Urine pH 5.5 (4.6 - 8.0) 01/23/19 02:00 Ur Specific [place] 1.025 (1.005-1.030) 01/23/19 02:00 Urine Protein NEGATIVE mg/dL (NEGATIVE) 01/23/19 02:00 Urine Glucose (UA) NEGATIVE mg/dL (NEGATIVE) 01/23/19 02:00 Urine Ketones NEGATIVE mg/dL (NEGATIVE) 01/23/19 02:00 Urine Blood NEGATIVE (NEGATIVE) 01/23/19 02:00 Urine Nitrate NEGATIVE (NEGATIVE) 01/23/19 02:00 Urine Bilirubin NEGATIVE (NEGATIVE) 01/23/19 02:00 Urine Urobilinogen 0.2 E.U./dL (0.2 - 1.0) 01/23/19 02:00 Ur Leukocyte Esterase MODERATE (NEGATIVE) H 01/23/19 02:00 Urine RBC 0-2 /hpf (0-5) 01/23/19 02:00 Urine WBC 10-25 /hpf (0-5) H 01/23/19 02:00 Ur Epithelial Cells FEW /lpf (FEW) 01/23/19 02:00 Urine Bacteria MODERATE /hpf (NONE SEEN) H 01/23/19 02:00 Blood Type O NEGATIVE 01/23/19 09:25 Antibody Screen NEGATIVE 01/23/19 09:25 Crossmatch See Detail 01/23/19 09:25 - Physical Exam Vitals and I&O: Vital Signs Temp 97.4 F 01/24/19 09:49 Pulse 65 01/24/19 09:49 Resp 18 01/24/19 09:49 BP 111/55 01/24/19 09:49 Pulse Ox 98 01/24/19 09:49 Intake & Output 01/23/19 01/24/19 01/24/19 18:59 06:59 18:59 Intake Total 50 200 Output Total 1 Balance 50 199 Weight (lbs) 96.162 kg 96.162 kg Intake: Intake, IV Amount 50 cefTRIAXone 1 gm In 50 Dextrose 5% 50 ml @ 100 mls/hr IV Q24H PENDING SALE TO [facility] Rx#: [id number] Oral 200 Output: Urine 1 Other: # Voids 3 # Bowel Movements 1 Stool Characteristics Soft Soft Formed Brown Weight Source Bedscale Bedscale Active Medications: Current Medications Acetaminophen (Tylenol) 650 mg PO Q4H PRN PRN Reason: Pain or Fever >101 Stop: 03/24/19 00:59 Last Admin: 01/24/19 08:29 Dose: 650 mg Atorvastatin Calcium (Lipitor) 10 mg PO DAILY PENDING SALE TO [facility] Stop: 03/24/19 08:59 Last Admin: 01/24/19 08:30 Dose: 10 mg Diazepam (Valium) 10 mg PO HS PRN PRN Reason: Insomnia Stop: 03/24/19 20:59 Last Admin: 01/23/19 20:42 Dose: 10 mg Docusate Sodium (Colace) 100 mg PO DAILY PATRICIA Stop: 03/24/19 17:59 Last Admin: 01/24/19 08:30 Dose: 100 mg Furosemide (Lasix) 20 mg PO DAILY PENDING SALE TO [facility] Stop: 03/24/19 08:59 Last Admin: 01/24/19 08:30 Dose: 20 mg Ceftriaxone Sodium 1 gm/ (Dextrose) 50 mls @ 100 mls/hr IV Q24H PATRICIA Stop: 03/24/19 06:59 Last Admin: 01/24/19 06:47 Dose: 100 mls/hr Levothyroxine Sodium (Synthroid) 0.05 mg PO QDAC PATRICIA Stop: 03/24/19 07:29 Last Admin: 01/24/19 06:47 Dose: 0.05 mg Lisinopril (Zestril) 40 mg PO DAILY [facility]END[facility] S[facility] TO [facility] Stop: 03/24/19 08:59 Last Admin: 01/24/19 08:31 Dose: Not Given Ondansetron HCl (Zofran) 4 mg IV Q4H PRN PRN Reason: Nausea Stop: 03/24/19 01:14 Pantoprazole Sodium (Protonix) 40 mg IVP DAILY PENDING S[facility] TO [facility] Stop: 03/24/19 08:59 Last Admin: 01/24/19 08:30 Dose: 40 mg General: Alert, No acute distress HEENT: Atraumatic Neck: Supple Cardiovascular: Regular rate, Normal S1, Normal S2 Lungs: Clear to auscultation Abdomen: Bowel sounds, Soft, no Tender Extremities: no Clubbing, no Cyanosis, no Edema Assessment/Plan - Assessment Assessment: Anemia - Plan Plan: Anemia S/P GI W/u Does not want any more procedures Await Haptoglobin and other tests F/U as OPT
[2019-01-25 06:07] LABS: FERRITIN 11 ng/mL (15-150); HAPTOGLOBIN 171 mg/dL (34-200); IRON LC 18 ug/dL (27-139); TIBC (LC) 464 ug/dL (250-450); UIBC 446 ug/dL (118-369)
[2019-01-25 10:30] LABS: FOLIC ACID SEE REF. LAB REPORT
--- NOTE | 2019-01-28 15:59 | Discharge Summary ---
DATE OF DISCHARGE: 01/24/2019 PRELIMINARY DIAGNOSES: 1. Abdominal pain. 2. Anemia, rule out gastrointestinal bleed, rule out colon cancer. 3. Urinary tract infection. 4. Hyperlipidemia. 5. Hypertension. 6. Peptic ulcer disease. 7. Gastroesophageal reflux disease. 8. Hypothyroidism. 9. Osteoarthritis. DISCHARGE DIAGNOSES: 1. Abdominal pain, now resolved. 2. Constipation. 3. Chronic anemia due to iron deficiency. 4. History of hemorrhoids. 5. Urinary tract infection. 6. Hyperlipidemia. 7. Hypertension. 8. Peptic ulcer disease. 9. Gastroesophageal reflux disease. 10. Hypothyroidism. 11. Osteoarthritis. HISTORY OF PRESENT ILLNESS: This is a 73-year-old female who presents to [facility] ER with dizziness, lightheadedness, fatigue and weakness along with abdominal pain, nausea and vomiting. The patient has a previous medical history, which includes hypertension, dyslipidemia, peptic ulcer disease, thyroid disorder and osteoarthritis. While in the ER, she had initial lab work, which revealed the following. White count was 5.9; hemoglobin 7.9; hematocrit 24.9; platelets 308,000. Sodium 139, potassium 3.9, BUN was 24, creatinine 0.8, glucose 118. UA was positive for leukocyte esterase, wbc's 10-25 cells per high power field, bacteria was moderate. The patient was subsequently admitted for further evaluation and treatment. HOSPITAL COURSE: The patient improved during her hospital stay, was given 1 unit of packed red blood cells. Repeat CBC done the following day revealed a white count of 8.4. The patient was seen and evaluated by GI, see dictated report. The patient was also found to have UTI during her hospital stay and was initially given IV antibiotics, which was then transferred over to Bactrim p.o. twice a day for 7 days. The patient was subsequently discharged to follow up as outpatient with her regular physician in 1 week. The patient also was to follow up with GI as well following her discharge. [facility]# [id number]
== END 2019-01-24 11:00 | disposition home or self-care (01) | DRG 812 ==
LOC: ER 20:22 → MSI 01-23 01:00
PROVIDERS: ADMIT Family Medicine; ATTEND Family Medicine
PROC: 30233N1 Transfusion of Nonautologous Red Blood Cells into Peripheral Vein, Percutaneous Approach (ICD-10-PCS; principal; 2019-01-23)
DX: D50.9 Iron deficiency anemia, unspecified (principal); N39.0 Urinary tract infection, site not specified; K59.00 Constipation, unspecified; E78.5 Hyperlipidemia, unspecified; E03.9 Hypothyroidism, unspecified; G31.9 Degenerative disease of nervous system, unspecified; R51 Headache; E86.0 Dehydration; I10 Essential (primary) hypertension; K21.9 Gastro-esophageal reflux disease without esophagitis; E66.9 Obesity, unspecified; Z68.37 Body mass index [BMI] 37.0-37.9, adult; Z53.20 Procedure and treatment not carried out because of patient's decision for unspecified reasons
CPT/HCPCS: 36415-UA; 70450-TC; 80053-TC; 80061-TC; 81001-TC; 82607-90; 82728-90; 82746-90; 83010-90; 83540-90; 83550-90; 84484-TC; 85007-TC; 85025-TC; 85044-TC; 85610-TC; 86850-TC; 86900-TC; 86901-TC; 86922-TC; 87086-90; C9113; J0696; J7040; P9016; Z7610